=== PATIENT | female | born 1955 | race Caucasian/White ===

== ENCOUNTER 2019-04-17 10:12 | Inpatient (IN) | payer MEDICARE, OTHER, SELFPAY ==
--- NOTE | 2019-04-03 13:25 | HP.PCM_ITS ---
History and Physical History and Physical Patient Name: Clemencia OlmsteadOB: 1955 From: MORENO ANGELO PA-C DATE OF SURGERY: 04/17/2019 SCHEDULED PROCEDURE: revision left total knee arthroplasty HISTORY OF PRESENT ILLNESS: Preoperative history and physical exam was performed on April 03, 2019. This is a 63-year-old female who is been having ongoing pain in her postsurgical left total knee arthroplasty since 2016. Patient had a previous left total knee arthroplasty by Dr. Carbone in 2003. Prior to that she had a previous surgery due to recurrent patellar dislocations. Patient states over the past 2 years her pain has progressively become worse. Patient states her pain is been aching. She has increased pain going up and down stairs and walking. She has difficult time with activities of daily living including shopping. She has fallen secondary to her left knee. Patient does complain of instability with the left knee. Previous lab work in May 2017 was negative for underlying infection. Patient feels unsafe going up and down stairs. Patient has tried rest, heat, elevation with only temporary relief. She has been through formal physical therapy and home exercises with only minimal relief. Patient has been using a cane on occasion. She denies any current chest pain, shortness of breath, fevers chills, recent infections. We are obtaining surgical clearance from her primary care physician Dr. Samuel. 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 After failing conservative measures and discussing treatment options with Dr. Manfred Mak, the patient would like to proceed with a revision left total knee arthroplasty. Patient does report postoperatively after her total knee arthroplasty she had significant tremors that required Valium. She states the neurologist needed to be consult while in the hospital. These tremors were secondary to her epilepsy. REVIEW OF SYSTEMS: ROS: Const: Reports anxiety, but denies anorexia, change in appetite, fever and weight change,hard of hearing, and vision problems. CV: Denies chest pain, heart murmur, irregular heartbeat and peripheral vascular disease. Resp: Denies asthma, cough, pneumonia, sleep apnea, SOB, tuberculosis and wheezing. GI: Denies constipation, diarrhea, heartburn, nausea, bloody stools and vomiting, and difficulty swallowing. : Genital: reports irregular menstrual periods. Urinary: denies incontinence. Musculo: Denies leg swelling, trouble walking and weakness and limp. Skin: Denies Raynaud's, history of shingles and tattoo. Neuro: Denies ambulatory dysfunction, dizziness, numbness/tingling and tremor. Psych: Denies anxiety, depression, insomnia, mental illness and stress. Rodrigo/Lymph: Denies anemia, bleeding/bruising tendency and past transfusion. Reviewed, no changes. PAST MEDICAL HISTORY: Advance Care Plan: No Advance Directives Effective Date: 06/22/2017 PMH: Medical Problems: Arthritis, Seizure Disorder, History Of Phlebitis Accidents: Fracture - Fingers LEFT HAND, RIGHT SIDE RIBS Fracture - (11/19/2009) LEFT FOOT Fracture - (10/2009) RIGHT WRIST Surgical Hx: Gallbladder, Hysterectomy, Tubal Ligation Knee Replacement - LEFT TKR, [address] [facility] Dr. Raf Silva - LEFT FOOT, 1974 [facility] Colonoscopy 2006 Carpal Tunnel Release RT - (02/03/2017) [email or web address] Recurrent Patella Dislocation - (1993) Anesthesia Complications: Tremors Assistive Devices: Glasses, Brace Reviewed and updated. SOCIAL HISTORY: SH: Marital: .Occupation: Homemaker Self Employed.Work Status: Self-Employed.Hand Dominance: Right-handed. Personal Habits: Smoking: Patient has never smoked.Cigarette Use: Never.Alcohol: Denies use.Drug Use: Denies Use.Enjoy Exercising: Daily. Reviewed and updated. VITALS: Ht: 62.5 Wt: 172lb Wt k.019 BMI: 31.0 BP: 118/80 Pulse: 94 Resp: 28 T: 97.7 T: 36.5C ALLERGIES: Sulfa MEDICATIONS: Pantoprazole Sodium 40 mg 1 by mouth every day, Aleve 220 mg prn pain, Phenytoin Sodium Extended 100 mg 1 by mouth four times a day, Acetaminophen PM Extra Strength 500-25 mg as needed, Cephalexin 500 mg PRE-OP EXAM: General appearance:NORMAL Other: Eyes: Conjunctivae and lids: NORMAL Pupils: ERR Ears, Nose, Mouth, and Throat: NORMAL Other: Inspection of lips, teeth and gums: NORMAL Other: Neck: Examination of neck: no masses noted. Respiratory: Assessment of respiratory effort: NORMAL Other: Auscultation of lungs: clear to auscultation no wheezes, rhonchi or rales. Cardiovascular: Auscultation of heart: regular rate and rhythm, no murmurs, gallops or rubs. Gastrointestinal: Exam of abdomen: soft, nontender, nondistended bowel sounds present. PHYSICAL EXAMINATION: Patient does walk with an antalgic gait. Previous left knee incisions are well- healed without erythema or signs of infection. Range of motion left knee: Lacks 3 of full extension to 120 flexion. There is mild excursion with anterior drawer testing. 3 mm excursion with varus and valgus stress testing at 30. Sensation intact to light touch. Neurovascularly intact. IMAGING STUDIES: X-rays of the left knee reveal well aligned knee in the coronal plane. There is central pin signifying condylar constrained implant. On the lateral view there is significant posterior slope which is not necessary in this implant. Otherwise implants are stable. Well fixed. IMPRESSION: 1. Painful left total knee arthroplasty 2. Epilepsy 3. History of superficial venous thrombosis 4. Gastroesophageal reflux disease PLAN: Dr. Manfred Mak did discuss and review with the patient all treatment options including surgical versus nonsurgical options. Patient does wish to proceed with the above-stated procedure. Potential risks, benefits, and complications of the procedure were discussed in detail including but not limited to , infection, nerve and blood vessel damage, persistent pain, numbness, tingling, paresthesias, blood clot, pulmonary embolism, and requirement for possible further surgery. The patient expressed full understanding and has no further questions for the doctor. Patient does agree to proceed with the above-stated procedure and has signed the surgery consent form. This dictation was created using voice recognition software. Phonetic and/or grammatical errors may exist.. ___ I have re-examined the patient. There are no clinical changes since date of exam. ___ See progress notes for changes. ___ Dictated on admission Date: Time: Signature:
[2019-04-03 14:19] VITALS: BP 116/70; PULSE 93; RESP 17; TEMP 37.2; O2SAT 96; BMI 31.4
[2019-04-03 15:32] LABS: Absolute Lymphocyte Count 1.43 X10^3/ul (0.83-4.51); Absolute Neutrophil Count 2.5 X10^3/uL (2.0-7.7); Basophil# 0.01 X10^3/uL; Basophil% 0.2 % (0-1); Eosinophil# 0.33 X10^3/uL; Eosinophils% 6.6 % (0-5); Hemoglobin 14.1 g/dl (12.0-15.0); Lymphocyte # 1.43 X10^3/ul (4.0); Lymphocyte % 28.6 % (19-41); Mean Corp Hgb Conc 32.8 g/gl (32-36); Mean Corpuscular Hgb 31.4 pg (27.0-32.0); Mean Corpuscular Volume 95.8 fL (81-99); Mean Platelet Vol. 9.7 fl (6.2-12.0); Monocyte# 0.75 X10^3/uL; Neutrophil # 2.47 X10^3/uL (2.7-7.7); Neutrophil % 49.4 % (47-70); Platelet Count 269 K/mm3 (150-450); RBC Distribution Width CV 13.1 % (11.6-14.6); Red Blood Count 4.49 M/mm3 (4.2-5.4)
[2019-04-03 15:42] LABS: Prothrombin Time (Protime)PT. 12.6 SECONDS (11.7-14.9)
[2019-04-03 15:43] LABS: Partial Thromboplast Time 27.8 Seconds (24.1-36.2)
[2019-04-03 15:47] LABS: AST(SGOT) 30 U/L (15-37); Alanine Aminotransfer ALT/SGPT 33 U/L (13-56); Albumin, Serum 3.5 g/dL (3.2-5.0); Alkaline Phosphatase 79 U/L (45-117); Anion Gap 3 (5-15); BUN 19 mg/dL (7-18); BUN/Creat Ratio 19.5 RATIO (10-20); Bilirubin, Direct 0.06 mg/dL (0.00-0.30); Calcium,Total 8.6 mg/dL (8.5-10.1); Chloride 108 mmol/L (98-107); Creatinine, Serum 0.97 mg/dL (0.55-1.02); EST Glomerular Filtration Rate 61 mL/min (>60); Est Glom Filt Rate - Afr Amer 74 mL/min (>60); Estimated Creatinine Clearance 45.73 ml/min; Glucose 106 mg/dL (74-106); Potassium 4.1 mmol/L (3.5-5.1); Protein, Total 7.5 g/dL (6.4-8.2); Sodium Level 140 mmol/L (136-145)
[2019-04-03 15:50] LABS: POSITIVE COUNT NO; POSITIVE DIFFERENTIAL NO; POSITIVE MORPHOLOGY NO
[2019-04-17] VITALS (9 sets, daily range): BP systolic 96–117; BP diastolic 56–78; PULSE 84–106; RESP 16–20; TEMP 36.4–36.7; O2SAT 95–100; BMI 31.4; BMI 31.3
[2019-04-17] MEDS: Magnesium Sulfate 4gm/100mL 4 GM/100 ML IV.SOLN. IV (10:52)
[2019-04-17] MEDS: Acetaminophen 500 MG Tablet 1000 MG PO ×2 (10:52→22:32)
[2019-04-17] MEDS: Gabapentin 600 MG Tablet PO (10:53)
[2019-04-17] MEDS: Scopolamine 1mg/72hr Patch 1 PATCH TRANSDERM. (10:53)
[2019-04-17 11:10] LABS: Bedside Glucose 82 mg/dL (70-110)
[2019-04-17] MEDS: Cefazolin 2 GM in 0.9% Normal Saline 100 ML IV (12:34)
--- NOTE | 2019-04-17 15:10 | OP.PCM_ITS ---
Report of Operation Date of Procedure: 04/17/19 Pre-Operative Diagnosis: Painful left total knee, instability Post-Operative Diagnosis: Painful left total knee, instability Surgery/Procedure Performed:: Revision Left total knee replacement entire tibia and femur components Description of Surgical Findings:: Stable knee. Patient did have fragmentation of the medial epicondyle which was repaired using a #5 FiberWire tension band residential monitor: Krishna Perez Type of Anesthesia:: Spinal Anesthesiologist: Byron Bustos Special Medications: 2 g Ancef, 1 g TXA at incision, 1 g TXA closure, 10 mg Decadron, joint cocktail (5 mg Duramorph, 30 mL of 0.5% Ropivicaine, 1000 units of epinephrine, 30 mg of Toradol). Ancef was redosed at completion of case. Vancomycin IV Specimen's removed: 3 separate specimens were sent to microbiology Estimated Blood Loss (mL): 150 Fluids Replaced: 600 ml crystalloid Description of Procedure: On the date of the procedure patient's left knee was marked in the preoperative area. Patient was taken back to the operating room with her transferred to the table in the supine position. Anesthesia assumed control of the C-spine and airway and remained controlled throughout the remainder of the procedure. Spin al anesthetic was administered. All bony prominences were identified and well- padded. After patient was appropriately positioned in the supine position with a bump on the left hip and tourniquet on the left upper thigh left lower extremity was prepped in a sterile fashion by the surgeon scrubbed. Upon entering the room the left lower extremity was draped in a sterile fashion and timeout was called and everyone agreed upon the side, the site, that she is reperformed, patient identity and antibiotics given. Incision was marked out using the previous incision and extending it proximally distally 1 cm. Esmarch bandage was used to examine it extremity. Knee was flexed and tourniquet was placed up to 250 mmHg. Incision was taken through skin subtenons tissue fat down to fascia. Appropriate flaps were made medially and laterally. After this was done a standard medial parapatellar arthrotomy was performed and the knee joint was entered. Once we entered the knee joint and appropriate synovectomy was performed starting in the medial gutter in the suprapatellar pouch and into the lateral gutter extending synovium for culture. Once this was done the central screw was removed and the polyethylene component was then removed using an osteotome. When this was done we finished the medial lateral and posterior synovectomies. Once this was done the knee was flexed up and osteotome was used to break up the bone cement interface of the femur. The femur appeared to be loose. The bone tamp were able to remove it. We did remove it there was some medial condyle bone loss and some ostial lysis noted with poor quality bone. Throughout the procedure we kept her eye on the medial condyle and epicondyle. Our attention was then directed towards the tibia. Oscillating saw and osteot omes were used to break up the bone cement interface and the implant was carefully removed. The remainder of the cement was removed. . Our attention was now directed towards the patella which appeared to be well fixed. Attention was then directed towards reconstruction of the knee at this point. Reamers were placed down the tibial canal until we got to a size 14 reamer. Once this was done we then reamed for a size B tibial cone. Tibial cone was placed using the cone as a guide we made a flat tibial cut perpendicular to the tibial axis which was checked using a drop mikal. Once this was done a size 2 baseplate was selected keel was punched in the size 2 baseplate with a 15 x 50 mm stem placed in the canal. Attention was then directed towards the femur. We reamed the femur canal up to a size 17. We prepared it for 150 mm stem. Once this was done we used a TC G cutting guide to make our distal femoral cuts and posterior cuts. Size 3 femoral component was selected. Once we did this we then elected to ream for right femoral cone. The box cut was made and then we reamed for the femoral cone. We reamed bubbles medially and laterally. Once this was done the trial cone was placed. Distally we used a 15 mm augment laterally and a 10 mm augment medially. After this was done 5 mm augments were used posteriorly both medially and laterally. We assembled the trial femoral co mponent and with the 150 x 17 mm stem trial was placed. We then trialed up to 25 mm polyethylene which gave us a stable knee in both flexion and extension. However take the knee through range of motion we noted some of the fragmentation of the medial epicondyle but remained intact. Once is completed all components were removed the wound was copiously 6 L normal saline. After appropriate irrigating out the wound the bone was prepped and a cement restrictor was placed in the tibial canal. The cone was placed proximally. Once this was done the tibial component was assembled as well as the femoral component. Cement was mixed for the tibia and the tibial canal was pressurized. The tibia was cemented into place due to the patient's poor quality bone was cemented the tibia first and held it in place until it was well fixed. We then directed our attention towards the femur for the diaphyseal portion was press- fit and the cone was placed and impacted. Once this was done cement was placed around the distal portion of the femoral stem and it was impacted into place. Once it was appropriately cured a TS 25 mm polyethylene trial showed well- balanced knee with good patella tracking. Patella was once again reexamined and found to be stable. At this time the final polyethylene was opened and impacted into place. The central pin was placed. Knee was taken through range of motion. We again reexamined the medial epicondyle. Based on the implants appeared to be stable however there was some motion with flexion. At this time we used a #[address] a tension band repair. This remained even further stable with range of motion now. Hemostasis was obtained and tourniquet was let down. Wound was closed using #1 Vicryl for the arthrotomy. 2-0 Vicryl and skin hilario for final skin closure. Sterile dressing was placed. Patient was awakened by anesthesia and transferred to PACU for recovery. Postop plan: Weightbearing as tolerated, motion as tolerated. Aspirin for DVT prophylaxis. Follow-up in the office in 2 weeks. My physician executive sales assistant was a vital part of this case. He was important in appropriate retraction during the case, and protection of soft tissues during bony cuts. His intimate knowledge of the case and my steps aided in safe and expedient completion of the procedure as well as appropriate position of the leg during the case. He was also vital in assisting with closure under my direct supervision. Grafts/Implants Used: [employer] triathlon total knee replacement - Complications During the course the procedure due to patient's osteopenia was some fragmentation of the medial epicondyle which was repaired using a #5 - Admit VTE Documentation VTE Present on Admission: No VTE Mechan Device Prophylaxis: SCD's, Thigh High CHANTALE Hose VTE Pharm Prophylaxis ordered?: Yes
[2019-04-17] MEDS: Scopolamine 1mg/72hr Patch 1 PATCH TD (15:15)
--- NOTE | 2019-04-17 16:00 | RAD_ITS ---
STUDY: X-RAY - LEFT KNEE REASON FOR EXAM: Female, 63 years old. Knee arthroplasty TECHNIQUE: 2 view(s) of the knee. COMPARISON: None. FINDINGS: Normal visualized distal femur. Normal visualized proximal tibia and fibula. Normal proximal tibiofibular articulation. Recent total knee arthroplasty with skin hilario and subcutaneous kidneys emphysema.. The soft tissue structures are unremarkable. RAD/Knee 1 or 2 Views IMPRESSION: Recent total knee arthroplasty. Electronically Signed: Jarrett Barahona MD at 16:14 EDT Tel , Service support ,
[2019-04-17] MEDS: Lactated Ringers 1,000 ML 999 ML IV (16:13)
[2019-04-17] MEDS: Lactated Ringers 1,000 ML 125 ML IV (20:23)
--- NOTE | 2019-04-17 21:34 | PN_ITS ---
Subjective: Medical consult for postop medical management. 63-year-old female with past medical history of seizure disorder, reported history of superficial venous thrombosis usually postoperative, history of left total knee arthroplasty in 2004, history of left knee previous patella fractures for dislocation, who comes in with progressive knee pain since 2017. It is worse on going up and down the staircase and affecting her activities of daily living. Patient had complained of instability of the left knee with episodes of falls. She had tried conservative management including physical therapy, home exercises, topical treatment and use of a cane with no relief. Patient had revision of her left knee arthroplasty done today. It was done under spinal anesthesia. She received left femoral nerve block postoperatively. At the time of being examined, patient feels the pain coming up, about 3 out of 10. She feels lightheaded but denies chest pain or palpitation. She is on IV fluids. 14 point Review of systems was essentially negative. Vitals/I&O's: Vital Signs Temp Pulse Resp BP Pulse Ox 98.0 F 88 16 106/69 98 04/17/19 19:14 04/17/19 19:14 04/17/19 19:14 04/17/19 19:14 04/17/19 19:14 Oxygen Flow Rate (L/min) 6 Oxygen Delivery Method Room Air Weight: 79.2 kg Body Mass Index (BMI) 31.3 Intake and Output for Last 24 Hours 04/15/19 04/16/19 04/17/19 23:59 23:59 23:59 Intake Total 1400 / 1400 Balance 1400 / 1400 General: Alert, Oriented x3, Cooperative, No apparent distress HEENT: Atraumatic, PERRLA, EOMI, Normocephalic Oral: Moist Mucosa Neck: Supple Lungs: Clear to auscultation, Normal air movement Cardiovascular: Regular rate, Regular Rhythm, Normal S1, Normal S2, No murmurs Abdomen: Bowel Sounds Present, Soft, Non Tender, Non-Distended, No Hepato- splenomegaly Extremities: No edema, - - left knee in DICKSON wraps, ice packs to knee, bilateral CHANTALE hoses on legs as well as SCDs Skin: No rashes Musculoskeletal: No Tenderness to Palpation of Joints or Extremities Lymphatic: No Cervical, Supraclavicular, or Inguinal Adenopathy Neurological: Cranial nerves II-XII grossly intact, Neuro grossly intact Psych/Mental Status: Normal Affect, Appropriate Laboratory Results 04/17/19 10:47: POC Glucose 82 Current Medications Acetaminophen (Tylenol) 1,000 mg PO Q8 [facility] Citalopram Hydrobromide (Celexa) 40 mg PO QHS [facility] Famotidine (Pepcid) 20 mg PO DAILY [facility] Lactated Ringer's () 1,000 mls @ 125 mls/hr IV .Q8H [facility] Last Admin: 04/17/19 20:23 Dose: 125 mls/hr Documented by: Cefazolin Sodium () 1 gm in 50 mls @ 150 mls/hr IV Q8H [facility] Stop: 04/18/19 07:19 Insulin Human Lispro (Humalog Kwikpen (Bkc)) 0 unit SC Q4H PRN PRN; Protocol PRN Reason: BG >/= 180, SEE PROTOCOL Ketorolac Tromethamine (Toradol) 15 mg IV Q6H PRN PRN PRN Reason: MILD-MOD PAIN (1-5/10) Meloxicam (Mobic) 7.5 mg PO BID [facility] Morphine Sulfate () 2 - 4 mg IV Q2H PRN PRN PRN Reason: SEVERE PAIN (6-10/10) Morphine Sulfate () 2 - 4 mg IV Q2H PRN PRN PRN Reason: SEVERE PAIN (6-10/10) Ondansetron HCl (Zofran) 4 mg IV Q8H PRN PRN PRN Reason: NAUSEA Oxycodone HCl (Oxyir) 5 - 10 mg PO Q4H PRN PRN PRN Reason: MOD-SEVERE PAIN (4-10/10) Pantoprazole Sodium (Protonix) 40 mg PO DAILY [facility] Phenytoin Sodium (Dilantin) 300 mg PO QHS [facility] Promethazine HCl (Phenergan) 12.5 mg IM Q6H PRN PRN; Protocol PRN Reason: NAUSEA/VOMITING Rivaroxaban (Xarelto) 10 mg PO DAILY@0600 [facility] Senna/Docusate Sodium (Senokot-S, Christi-Colace) 2 tablet PO BID [facility] Sodium Chloride () 10 - 40 ml IV UD PRN PRN Reason: SALINE FLUSH Medical Necessity - Tobacco Use Smoking Status: Never smoker Assessment/Plan 1. POD #0, status post revision of left knee arthroplasty, pain control and surgical recommendations by orthopedic 2. Seizure disorder, on Dilantin, last seizure episode was in 1983, recent Dilantin check a couple of months ago was normal, on stable doses 3. GERD, on PPI 4. Anxiety/depression on Celexa 5. History of postop tremors, susceptible to Valium 6. DVT PPx- on Xarelto Code Visit Inpatient E&M: 16281 Subs Hosp L2
[2019-04-17] MEDS: diazePAM 2 MG Tablet 1 MG PO (22:29)
[2019-04-17] MEDS: Phenytoin Na 100 MG Capsule 300 MG PO (22:30)
[2019-04-17] MEDS: Citalopram 40 MG TABLET PO (22:30)
[2019-04-17] MEDS: Meloxicam 7.5 MG Tablet PO (22:31)
[2019-04-17] MEDS: Senna/Docusate Sodium 1 Tablet 2 TABLET PO (22:32)
[2019-04-17] MEDS: Ketorolac 15 MG/ML Vial IV (22:33)
[2019-04-18 04:00] VITALS: BP 137/74; PULSE 90; RESP 20; TEMP 36.9; O2SAT 98
[2019-04-18] MEDS: Acetaminophen 500 MG Tablet 1000 MG PO ×3 (05:07→22:33)
[2019-04-18] MEDS: oxyCODONE 5 MG Tablet PO ×3 (05:10→19:22)
[2019-04-18 06:02] LABS: Hemoglobin 11.5 g/dl (12.0-15.0); Mean Corp Hgb Conc 32.9 g/gl (32-36); Mean Corpuscular Hgb 31.3 pg (27.0-32.0); Mean Corpuscular Volume 95.4 fL (81-99); Mean Platelet Vol. 9.4 fl (6.2-12.0); Platelet Count 194 K/mm3 (150-450); RBC Distribution Width CV 13.1 % (11.6-14.6); RBC Distribution Width SD 45.9 fl (35.1-43.9); Red Blood Count 3.67 M/mm3 (4.2-5.4); White Blood Count 8.6 K/mm3 (4.4-11.0)
[2019-04-18 06:18] LABS: Anion Gap 5 (5-15); BUN 11 mg/dL (7-18); BUN/Creat Ratio 13.7 RATIO (10-20); Calcium,Total 7.8 mg/dL (8.5-10.1); Chloride 101 mmol/L (98-107); EST Glomerular Filtration Rate 76 mL/min (>60); Est Glom Filt Rate - Afr Amer 92 mL/min (>60); Estimated Creatinine Clearance 55.45 ml/min; Glucose 120 mg/dL (74-106); Potassium 3.9 mmol/L (3.5-5.1); Scan Indicated on CBC? Y/N NO; Sodium Level 134 mmol/L (136-145)
[2019-04-18 07:51] VITALS: BP 131/74; PULSE 83; RESP 16; TEMP 36.9; O2SAT 94
[2019-04-18] MEDS: Rivaroxaban 10 MG Tablet PO (07:59)
[2019-04-18] MEDS: Cefazolin 1 GM/50 ML BAG IV ×2 (07:59)
--- NOTE | 2019-04-18 10:11 | PCM.PN.ORT ---
Subjective: The patient was sitting in bedside chair upon examination. Patient denies any chest pain, shortness of breath, dizziness, lightheadedness, nausea or vomiting, or calf pain. Pain is controlled on medications at rest. Patient's main complaint is pain when she is up walking. Patient is also getting some tremors/spasms in the left lower extremity. No adverse overnight events. Patient after her last total joint replacement she had significant tremors secondary to her epilepsy. This could only be managed with Valium. She did have 1 dose of Valium overnight. Case was discussed with Dr Vanegas and he will order Valium at this time. Patient has been working with physical therapy and there is concerned with patient needing further skilled treatment. Objective: 1. S/P revision left total knee replacement entire tibia and femoral components with fragmentation of the medial epicondyle and repair POD #1 2. Continue Pain Medications: Tylenol and OxyIR 3. DVT Prophylaxis: Currently on Xarelto for 2 weeks postoperatively, followed by additional 2 weeks of 81 mg aspirin twice daily for DVT prophylaxis 4. PT/OT: Weightbearing as tolerated with walker, range of motion as tolerated. 5. H & H: 11.5/35.0, asymptomatic 6. Encouraged Incentive Spirometry 7. Continue postoperative medical management per medicine: Case was discussed with hospitalist and at this time Valium has been ordered for her tremors/spasms secondary to her epilepsy. 8. Disposition: machine operator hop worker is on board with appropriate placement. Patient may need additional assistant department manager with longterm facility. We will continue to monitor. - Physical Exam General: Alert, Oriented x3, Cooperative, No apparent distress Vital Signs Temp Pulse Resp BP Pulse Ox 98.4 F 83 16 131/74 H 94 04/18/19 07:51 04/18/19 07:51 04/18/19 07:51 04/18/19 07:51 04/18/19 07:51 Oxygen Flow Rate (L/min) 6 Oxygen Delivery Method Room Air Weight: 79.2 kg Body Mass Index (BMI) 31.3 Intake and Output for Last 24 Hours 04/16/19 04/17/19 04/18/19 23:59 23:59 23:59 Intake Total 1400 / 3239 2499 / 2499 Output Total 600 / 600 Balance 1400 / 3239 1899 / 1899 Laboratory Tests Past 24 Hrs 04/18/19 04/18/19 05:28 05:28 WBC 8.6 RBC 3.67 L Hgb 11.5 L Hct 35.0 L MCV 95.4 MCH 31.3 MCHC 32.9 RDW 13.1 RDW Differential 45.9 H Plt Count 194 MPV 9.4 Sodium 134 L Potassium 3.9 Chloride 101 Carbon Dioxide 28.0 Anion Gap 5 BUN 11 Creatinine 0.80 Estim Creat Clear Calc 55.45 Est GFR (MDRD) Af Amer 92 Est GFR (MDRD) Non-Af 76 BUN/Creatinine Ratio 13.7 Glucose 120 H Calcium 7.8 L POC Glucose 04/17/19 10:47 POC Glucose 82 Medical Necessity - Tobacco Use Smoking Status: Never smoker
[2019-04-18] MEDS: Pantoprazole Sodium 40 MG Tablet PO (10:26)
[2019-04-18] MEDS: Senna/Docusate Sodium 1 Tablet 2 TABLET PO ×2 (10:26→22:33)
[2019-04-18] MEDS: Famotidine 20 MG Tablet PO (10:26)
[2019-04-18] MEDS: Meloxicam 7.5 MG Tablet PO ×2 (10:26→22:33)
[2019-04-18] MEDS: diazePAM 5 MG Tablet PO ×3 (10:26→22:39)
--- NOTE | 2019-04-18 11:33 | CASEMGMT ---
Addendum entered by Massiel Stoner 04/18/19 14:30: SW spoke w/pt, and daughter in room. Pt reports that therapy went much better this afternoon, and that her nausea is now under control. Pt and both feel that pt will be able to manage at home w/home health care. SW explained will let CM know. SW let CM know that pt feels is able to return home w/[facility], and pt had called [facility], CM will follow up. RUFINO Medrano Original Note: SW met w/pt and pt's in room in regard to discharge plan. Prior to admission, pt was independent at home, using no DME. Pt lives home w/ in one story home with one step to enter. Pt has a cane and walker, though was not using these prior to this hospitalization. Pt had a knee replacement 15 years ago so had equipment from that surgery. Pt has no other DME. Pt's PCP is Irene Samuel and pt uses [facility] in [place]. SW spoke w/pt and about discharge plan. Pt states she was planning to go home w/[facility], and after two weeks go to outpt therapy. SW spoke w/pt about SNF and rehab options as well, as therapy so far is not going well. Pt is not sure what she wants to do. SW explained that SW can check back after therapy this afternoon, pt agreeable to this. SW will follow up w/pt and after therapy this afternoon in regard to discharge plan. RUFINO Medrano
[2019-04-18] MEDS: Ondansetron 4 MG/2 ML Vial IV (12:01)
[2019-04-18] MEDS: 0.9% NaCl Peripheral Flush Adult/Peds IV (12:01)
[2019-04-18] MEDS: Ketorolac 15 MG/ML Vial IV (12:01)
[2019-04-18 14:36] VITALS: BP 130/75; PULSE 86; RESP 16; TEMP 36.9; O2SAT 93
--- NOTE | 2019-04-18 14:43 | CHAPLAIN ---
Type of Pastoral Visit _x__ Initial Visit ___ Follow-up Visit ___ On-call Visit ___ General Patient Visit ___ Spiritual Assessment ___ Family Conference ___ Bereavement ___ Rapid Response ___ Code Blue ___ Other (describe below) Pastoral Care Referral From _x__ Patient ___ Family ___ Nurse ___ Physician ___ Community Relations Specialist ___ Independent Marketing Consultant ___ Other (describe below) Sacrament/Intervention _x__ Active listening ___ Anointing ___ Synagogue ___ Bereavement ___ Communion _x__ Lali exploration ___ _x__ Life review _x__ Prayer ___ Reconciliation ___ Sacrament of Sick _x__ Supportive presence ___ Wedding ___ Other (describe below) Pastoral Comments
--- NOTE | 2019-04-18 15:39 | CASEMGMT ---
MARINO KERN NOTE: Per RASHEED Rankin, pt wishes to discharge home with [facility]. To room to talk with. Introduced self and role of MARINO KERN. Pt confirms she would like to go home with [facility] and wants [facility] therapy in [place]. Pt made aware [facility] uses [facility] therapy and pt agreeable to [facility]. Call placed to [facility] and referral made. Referral packet faxed to [facility] at this time. Confirmation received that fax went through successfully. [facility]: PH: [phone] Silvia MCGEE RN, CM
[2019-04-18 20:35] VITALS: BP 135/67; PULSE 100; RESP 20; TEMP 37.3; O2SAT 94
[2019-04-18] MEDS: Citalopram 40 MG TABLET PO (22:33)
[2019-04-18] MEDS: Phenytoin Na 100 MG Capsule 300 MG PO (22:33)
[2019-04-19 02:30] VITALS: BP 134/74; PULSE 97; RESP 18; TEMP 36.8; O2SAT 94
[2019-04-19] MEDS: oxyCODONE 5 MG Tablet PO ×3 (04:07→14:39)
[2019-04-19] MEDS: diazePAM 5 MG Tablet PO ×2 (05:31→14:39)
[2019-04-19] MEDS: Acetaminophen 500 MG Tablet 1000 MG PO (05:31)
[2019-04-19] MEDS: Rivaroxaban 10 MG Tablet PO (05:31)
--- NOTE | 2019-04-19 07:03 | PCM.PN.ORT ---
Subjective: The patient was sitting in bed upon examination. Patient denies any chest pain, shortness of breath, dizziness, lightheadedness, nausea or vomiting, or calf pain. Pain is controlled on medications. No adverse overnight events. Patient continues to have pain mainly when she is up walking. Patient does require ankle braces due to her neuropathy. Patient is also currently using Valium due to the tremors after surgery secondary to her epilepsy. Physical therapy does recommend additional therapy. Patient was initially planned for home with home health care. However the hospitalist did discuss with her going to the rehab unit postoperatively to help her get back on her feet prior to going home. She states she is struggling when she is up walking and has most of her pain at that time. Objective: Vital signs stable and afebrile. Patient is able to plantarflex and dorsiflex actively. Sensation is intact to light touch to saphenous, sural, superficial and deep peroneal, and tibial distribution. Dressing is clean dry and intact. Negative Homans bilaterally, negative signs and symptoms of DVT. - Physical Exam General: Alert, Oriented x3, Cooperative, No apparent distress Vital Signs Temp Pulse Resp BP Pulse Ox 98.3 F 97 18 134/74 H 94 04/19/19 02:30 04/19/19 02:30 04/19/19 02:30 04/19/19 02:30 04/19/19 02:30 Oxygen Flow Rate (L/min) 6 Oxygen Delivery Method Room Air Weight: 79.2 kg Body Mass Index (BMI) 31.3 Intake and Output for Last 24 Hours 04/17/19 04/18/19 04/19/19 23:59 23:59 23:59 Intake Total 1400 / 3239 2699 / 3099 600 / 600 Output Total 800 / 800 Balance 1400 / 3239 1899 / 2299 600 / 600 Microbiology Past 72 Hours 04/17/19 15:00 Gram Stain - Final Tissue - Leg, Left Wound Culture - Preliminary No growth-Final to follow 04/17/19 15:00 Gram Stain - Final Tissue - Leg, Left Wound Culture - Preliminary No growth-Final to follow 04/17/19 15:00 Gram Stain - Final Tissue - Leg, Left Wound Culture - Preliminary No growth-Final to follow Laboratory Tests Past 24 Hrs 04/19/19 05:57 WBC Pending RBC Pending Hgb Pending Hct Pending MCV Pending MCH Pending MCHC Pending RDW Pending RDW Differential Pending Plt Count Pending Medical Necessity - Tobacco Use Smoking Status: Never smoker Assessment/Plan 1. S/P revision left total knee replacement entire tibia and femoral components with fragmentation of the medial epicondyle and repair POD #2 2. Continue Pain Medications: Tylenol and OxyIR 3. DVT Prophylaxis: Currently on Xarelto for 2 weeks postoperatively, followed by additional 2 weeks of 81 mg aspirin twice daily for DVT prophylaxis 4. PT/OT: Weightbearing as tolerated with walker, range of motion as tolerated. 5. H & H: 11.4/34.8, asymptomatic 6. Encouraged Incentive Spirometry 7. Continue postoperative medical management per medicine: Case was discussed with hospitalist and at this time Valium has been ordered for her tremors/spasms secondary to her epilepsy. Patient will be given 1 week supply of the Valium for her postoperative tremors. After that patient will require contacting her primary care physician for further medications. 8. Disposition: At this time patient will need additional residential facility postoperatively. Patient is currently requiring the Valium for her tremors. I do believe patient would benefit from additional skilled facility. Will discuss case with social media intern/case management for possible discharge to the rehab unit. Prescriptions will be attached to chart. Patient will follow-up per postop instructions.
[2019-04-19 07:09] LABS: Hematocrit 34.8 % (37-47); Hemoglobin 11.4 g/dl (12.0-15.0); Mean Corp Hgb Conc 32.8 g/gl (32-36); Mean Corpuscular Hgb 30.8 pg (27.0-32.0); Mean Corpuscular Volume 94.1 fL (81-99); Mean Platelet Vol. 9.7 fl (6.2-12.0); Platelet Count 192 K/mm3 (150-450); RBC Distribution Width CV 12.9 % (11.6-14.6); White Blood Count 5.9 K/mm3 (4.4-11.0)
[2019-04-19 07:16] LABS: Scan Indicated on CBC? Y/N NO
--- NOTE | 2019-04-19 07:18 | DCINST_ITS ---
Discharge Diet: No Restrictions Discharge Activity: May Not Drive May shower in (days): 1 - Turn dressing away from water Ice area for (Minutes): 20 - every hour while awake. Weight Bearing Status: Weight bearing as tolerated Elevate: Operative Extremity Additional Activity Instructions:: Wear elastic stockings for 2 weeks after your surgery. Call your doctor if your incision/area has: Continuous Slow Oozing, Sudden Increased Bleeding, Increased Pain/ Swelling, Increased Redness, Foul Smelling Discharge Call your doctor if you observe: Fever of 101 or Higher, Coldness, Increased Pain, Numbness or Tingling, Change in Color, Calf discomfort, Uncontrolled pain Remove Dressing in (days):: 3 - Okay to remove dressing on April 22, 2019 Additional Instructions: DVT prophylaxis: Patient will use Xarelto once daily for 2 weeks postoperatively. After 2-week follow-up visit at [facility] we will switch her however to 81 mg aspirin twice daily with food for an additional 2 weeks Valium: This is currently being used for her postoperative tremors. We will provide 1 week supply postoperatively. After that patient will require to contact her primary care physician for further medication. Allergies/Adverse Reactions: Allergies Sulfa (Sulfonamide Antibiotics) Allergy (Verified 04/17/19 10:24) Rash PAPER TAPE Allergy (Uncoded 04/17/19 10:24) Rash Medications to take at Discharge Citalopram [Celexa] 40 mg PO QHS 04/03/19 Pantoprazole Sodium [Protonix] 40 mg PO DAILY 04/03/19 Phenytoin Sodium Extended [Dilantin] 300 mg PO QHS 04/03/19 Acetaminophen [Tylenol] 1,000 mg PO Q8 #100 tab 04/19/19 Diazepam [Valium] 5 mg PO TID PRN #21 tab 04/19/19 Meloxicam [Mobic] 7.5 mg PO BID #60 tab 04/19/19 Oxycodone [Oxyir] 5 - 10 mg PO Q4H PRN PRN 5 Days #60 tab 04/19/19 Rivaroxaban [Xarelto] 10 mg PO DAILY@0600 #14 tab 04/19/19 Senna/Docusate Sodium [Senokot-S] 2 tab PO BID #20 tab 04/19/19 The following prescriptions were given: Meloxicam [Mobic] 7.5 mg PO BID #60 tab Prescription Printed Oxycodone [Oxyir] 5 - 10 mg PO Q4H PRN PRN 5 Days #60 tab PRN Reason: Mod-Severe Pain (-07/18) Prescription Printed Senna/Docusate Sodium [Senokot-S] 2 tab PO BID #20 tab Prescription Printed Acetaminophen [Tylenol] 1,000 mg PO Q8 #100 tab Prescription Printed Diazepam [Valium] 5 mg PO TID PRN #21 tab PRN Reason: tremors Prescription Printed Rivaroxaban [Xarelto] 10 mg PO DAILY@0600 #14 tab Prescription Printed Primary Care Physician: Irene Samuel MD [Primary Care Provider] - Test Results: Test results from this visit will be discussed in further detail at your follow- up appointment, if applicable. Please Follow Up With: Krishna Perez PA-C When: 05/01/19 @ 10:00
[2019-04-19 08:30] VITALS: BP 103/68; PULSE 92; RESP 18; TEMP 37.1; O2SAT 93
[2019-04-19] MEDS: Senna/Docusate Sodium 1 Tablet 2 TABLET PO (09:09)
[2019-04-19] MEDS: Pantoprazole Sodium 40 MG Tablet PO (09:09)
[2019-04-19] MEDS: Meloxicam 7.5 MG Tablet PO (09:09)
[2019-04-19] MEDS: Famotidine 20 MG Tablet PO (09:09)
--- NOTE | 2019-04-19 09:16 | CASEMGMT ---
MARINO KERN NOTE: Discharge plan is now for pt to go to @ discharge. Call placed to [facility]. Message left stating that referral is cancelled. Silvia MCGEE RN CM
--- NOTE | 2019-04-19 09:17 | CASEMGMT ---
Social Work Note RASHEED spoke with Yohannes CISNEROS. Per Yohannes he was updated by the pt that pt wishes to discharge to instead of going home. Yohanens states pt is ready for discharge today. RASHEED informed Ray that pt will need to be discharged and over to by 3:00pm today for [facility] to take pt today and doesn't accept admissions on the weekend now. Yohannes states understanding. RASHEED placed a call to Destini with [facility]. Destini confirms that she is able to accept pt today. RASHEED met with pt, introduced self and role at [facility]. Pt is alert and orientated x4. Pt confirms that she wishes to discharge to . RASHEED updated pt that [facility] is able to accept pt and pt will be discharged today. Pt states understanding. RN updated. RASHEED placed a call to AMELIA Sheffield and updated him that pt is agreeable to [facility]. Yohannes states he will put discharge in. Plan: [facility] today Gisel Matta MANUFACTURING CONTROLS ENGINEER, MANUFACTURING ENGINEERING PROFESSOR
--- NOTE | 2019-04-19 11:21 | PCM.HP.STD ---
History of Present Illness Date of Admission: 04/19/19 Chief Complaint: LEFT KNEE PAIN The patient is a 63 year old F admitted to the rehab unit status post repeat total left knee replacement surgery performed 04/09/[address] Mak, her postoperative course has been on eventful. She has had some constipation and pain. She lives at home with her in a one-story house with 8 steps that she needs to negotiate in order to return home. She is otherwise functionally independent. She does have a history of seizures remotely but has not had seizures in at least 30 years and continues to take the same dose of Dilantin which is well-tolerated. She used to see a neurologist in [place] but he has retired. She believes when she has a surgery she has seizures involving her left leg which she describes pain and tremors which improved with Valium and her left lower extremity. No other evidence of seizures. She is now admitted to the rehab unit with a goal of restoring her previous level of functional independence. per admit note:Preoperative history and physical exam was performed on April 03, 2019. This is a 63-year-old female who is been having ongoing pain in her postsurgical left total knee arthroplasty since 2016. Patient had a previous left total knee arthroplasty by Dr. Carbone in 2003. Prior to that she had a previous surgery due to recurrent patellar dislocations. Patient states over the past 2 years her pain has progressively become worse. Patient states her pain is been aching. She has increased pain going up and down stairs and walking. She has difficult time with activities of daily living including shopping. She has fallen secondary to her left knee. Patient does complain of instability with the left knee. Previous lab work in May 2017 was negative for underlying infection. Patient feels unsafe going up and down stairs. Patient has tried rest, heat, elevation with only temporary relief. She has been through formal physical therapy and home exercises with only minimal relief. Patient has been using a cane on occasion. She denies any current chest pain, shortness of breath, fevers chills, recent infections. We are obtaining surgical clearance from her primary care physician Dr. Samuel. 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 After failing conservative measures and discussing treatment options with Dr. Manfred Mak, the patient would like to proceed with a revision left total knee arthroplasty. Patient does report postoperatively after her total knee arthroplasty she had significant tremors that required Valium. She states the neurologist needed to be consult while in the hospital. These tremors were secondary to her epilepsy. Past Medical History Allergies Sulfa (Sulfonamide Antibiotics) Allergy (Verified 04/17/19 10:24) Rash PAPER TAPE Allergy (Uncoded 04/17/19 10:24) Rash Home Medications: Ambulatory Orders Medication Instructions Recorded Citalopram [Celexa] 40 mg PO QHS 04/03/19 Pantoprazole Sodium [Protonix] 40 mg PO DAILY 04/03/19 Phenytoin Sodium Extended 300 mg PO QHS 04/03/19 [Dilantin] Acetaminophen [Tylenol] 1,000 mg PO Q8 #100 tab 04/19/19 Diazepam [Valium] 5 mg PO TID PRN #21 tab 04/19/19 Meloxicam [Mobic] 7.5 mg PO BID #60 tab 04/19/19 Oxycodone [Oxyir] 5 - 10 mg PO Q4H PRN PRN 5 Days 04/19/19 #60 tab Rivaroxaban [Xarelto] 10 mg PO DAILY@0600 #14 tab 04/19/19 Senna/Docusate Sodium [Senokot-S] 2 tab PO BID #20 tab 04/19/19 Smoking Status: Never smoker - *Family History Maternal History Items: No pertinent history Review of Systems Constitutional: Denies: Chills, Fever, Weight Change HEENT: Denies: Head Aches, Sinus Congestion, Sinus Drainage Cardiovascular: Denies: Chest Pain, Palpitations Respiratory: Denies: Cough, Shortness of breath at rest, Sputum production Gastrointestinal: Denies: Abdominal Pain, Nausea, Vomiting Genitourinary: Denies: Dysuria Musculoskeletal: Denies: Joint Pain, Joint Tenderness Skin: Denies: Rash, Wounds Neurological: Denies: Numbness, Tingling, Focal weakness Psychiatric: Denies: Anxiety, Depression, Homicidal Ideations, Suicidal Ideations Hematologic/ Lymphatic: Denies: Easy Bruising, Easy Bleeding VTE Information - Inpt Only VTE Present on Admission: Yes VTE Mechan Device Prophylaxis: SCD's - Physical Exam General: Alert, Oriented x3, Cooperative, No apparent distress HEENT: Atraumatic, PERRLA, EOMI Neurological: Cranial nerves II-XII grossly intact Psych/Mental Status: Normal Affect Vital Signs Temp Pulse Resp BP Pulse Ox 37.1 C 92 18 103/68 93 04/19/19 08:30 04/19/19 08:30 04/19/19 08:30 04/19/19 08:30 04/19/19 08:30 Oxygen Flow Rate (L/min) 6 Oxygen Delivery Method Room Air Weight: 79.2 kg Body Mass Index (BMI) 31.3 Intake and Output for Last 24 Hours 04/17/19 04/18/19 04/19/19 23:59 23:59 23:59 Intake Total 1400 / 3239 2699 / 3099 600 / 600 Output Total 800 / 800 Balance 1400 / 3239 1899 / 2299 600 / 600 Microbiology Past 72 Hours 04/17/19 15:00 Gram Stain - Final Tissue - Leg, Left Wound Culture - Preliminary No growth-Final to follow 04/17/19 15:00 Gram Stain - Final Tissue - Leg, Left Wound Culture - Preliminary No growth-Final to follow 04/17/19 15:00 Gram Stain - Final Tissue - Leg, Left Wound Culture - Preliminary No growth-Final to follow Laboratory Tests Past 24 Hrs 04/19/19 05:57 WBC 5.9 RBC 3.70 L Hgb 11.4 L Hct 34.8 L MCV 94.1 MCH 30.8 MCHC 32.8 RDW 12.9 RDW Differential 43.0 Plt Count 192 MPV 9.7 Current Home Med List Medication Instructions Recorded Confirmed Type Citalopram [Celexa] 40 mg PO QHS 04/03/19 04/17/19 History Pantoprazole Sodium [Protonix] 40 mg PO DAILY 04/03/19 04/17/19 History Phenytoin Sodium Extended 300 mg PO QHS 04/03/19 04/17/19 History [Dilantin] Acetaminophen [Tylenol] 1,000 mg PO Q8 #100 tab 04/19/19 Rx Diazepam [Valium] 5 mg PO TID PRN #21 tab 04/19/19 Rx Meloxicam [Mobic] 7.5 mg PO BID #60 tab 04/19/19 Rx Oxycodone [Oxyir] 5 - 10 mg PO Q4H PRN PRN 5 Days 04/19/19 Rx #60 tab Rivaroxaban [Xarelto] 10 mg PO DAILY@0600 #14 tab 04/19/19 Rx Senna/Docusate Sodium [Senokot-S] 2 tab PO BID #20 tab 04/19/19 Rx Current Medications Generic Name Dose Route Start Last Admin Trade Name Freq PRN Reason Stop Dose Admin Acetaminophen 1,000 mg 04/17/19 22:00 04/19/19 05:31 Tylenol PO 1,000 mg Q8 ALANA Administration Citalopram Hydrobromide 40 mg 04/17/19 22:00 04/18/19 22:33 Celexa PO 40 mg QHS ALANA Administration Diazepam 5 mg 04/18/19 09:35 04/19/19 05:31 Valium PO 5 mg TID ALANA Administration Famotidine 20 mg 04/18/19 10:00 04/19/19 09:09 Pepcid PO 20 mg DAILY ALANA Administration Ketorolac Tromethamine 15 mg 04/17/19 20:50 04/18/19 12:01 Toradol IV 15 mg Q6H PRN PRN Administration MILD-MOD PAIN (1-5/10) Meloxicam 7.5 mg 04/17/19 22:00 04/19/19 09:09 Mobic PO 7.5 mg BID ALANA Administration Morphine Sulfate 2 - 4 mg 04/17/19 15:08 IV Q2H PRN PRN SEVERE PAIN (6-10/10) Morphine Sulfate 2 - 4 mg 04/17/19 15:13 IV Q2H PRN PRN SEVERE PAIN (6-10/10) Ondansetron HCl 4 mg 04/17/19 15:08 04/18/19 12:01 Zofran IV 4 mg Q8H PRN PRN Administration NAUSEA Oxycodone HCl 5 - 10 mg 04/17/19 15:08 04/19/19 09:08 Oxyir PO 5 mg Q4H PRN PRN Administration MOD-SEVERE PAIN (4-10/10) Pantoprazole Sodium 40 mg 04/18/19 10:00 04/19/19 09:09 Protonix PO 40 mg DAILY ALANA Administration Phenytoin Sodium 300 mg 04/17/19 22:00 04/18/19 22:33 Dilantin PO 300 mg QHS ALANA Administration Promethazine HCl 12.5 mg 04/17/19 15:08 Phenergan IM Q6H PRN PRN NAUSEA/VOMITING Protocol Rivaroxaban 10 mg 04/18/19 06:00 04/19/19 05:31 Xarelto PO 10 mg DAILY@0600 ALANA Administration Senna/Docusate Sodium 2 tablet 04/17/19 22:00 04/19/19 09:09 Senokot-S, Christi-Colace PO 2 tablet BID ALANA Administration Sodium Chloride 10 - 40 ml 04/17/19 16:25 04/18/19 12:01 IV 10 ml UD PRN Administration SALINE FLUSH Assessment/Plan debility s/p left tkr pt ot prn analgesics dvt prophylaxis bowel protocol (has been constipated) history of sz, unclear history no seizures in 30 yrs on dilantin continue dilantin
--- NOTE | 2019-04-19 11:29 | REHABEVAL_ITS ---
Admission Information Status Changes from Prescreening?: No changes Identified Actual Problem List:: Pain, ALteration in Cmfrt, Bowel, Constipation, Alteration in Nutrition, Mobility Impaired, Self Care Deficit, BP, Hypertension, Ineffect.D/C Plan r/t Psy Potential Problem List:: DVT, Bleeding, Infection, UTI, Aspiration, Falls, Skin Integrity, Depression Risk of Complications DVT: LMWH, CHANTALE Hose, Sequential Compression Device Bleeding: Monitor Lab Values, Nursing to Teach Precautions for anti-coagulation therapy., Wound, if applicable, to be assessed every shift., Stroke patients assessed for lethargy or change in status. Infection: Clinical Staff to Monitor for S/S of infection:, S/S of infection include fever, redness, warmth, etc. Urinary Tract Infection: Monitor for frequency, burning, discomfort, or incontinence., Nursing will obtain urine sample for urinalysis and C&S when ordered. Aspiration: Clinical staff will monitor for coughing, drooling, congestion., Speech will evaluate swallowing and dsyphasia., Nursing will monitor patient swallowing during meals. Falls: Patient will be evaluated for Fall Precautions, Patient will be placed on Fall Precautions as indicated per protocol. Skin Breakdown: Nursing will assess skin daily using assessment tool., Nursing will place on Skin Breakdown Precautions as indicated. Pain: Clinical staff will assess patient's pain level per protocol., Medications will be given, if needed, and the pain level reassessed., Other methods: Massage, distraction, decrease stimulus, etc. used PRN. Plan of Care Patient requires physician specializing in physical medicine and rehab oversight to provide close medical supervision of rehab issues including: Pain Management, Sleep Problems, Bowel and Bladder, Medical and co-morbidity Management, DVT prophylaxis, Rehabilitation Leadership, Coordination of treatment team Patient needs Physical Therapy: For a minimum of 1 hour, At least 5 out of 7 days Patient needs Physical Therapy to improve:: Mobility, Mobility, Mobility, Strengthening, Transfers, Stretching, ROM, Endurance, Stairs, Gait, Balance Patient needs Occupational Therapy: For a minimum of 1 hour, At least 5 out of 7 days Patient needs Occupational Therapy to improve ADL's incl.: Eating, Grooming, Bathing, Dressing, Toileting, Toilet transfers, Community Reintegration, Higher functioning activities, Household tasks, Adaptive Equipment, Splinting, Other activities as determined Patient requires 24/ Rehabilitation Nursing for: Pain Issues, Identifying and preventing risk factors, Monitoring and reporting current medical conditions, Assisting with ambulation, transfer, and all ADL's, Teaching patients about disease process and medications, Family teaching, Providing safe environment, Bowel and Bladder Issues, Skin integrity, Medication Management Patient needs Tender Labor/ Case Management for: Discharge Planning, Arranging Home Equipment or Services, Family Interventions Patient needs Dietary and Nutrition Services for: Adequate Nutrition, Nutritional Supplements, Nutritional Education Goals Patient will remain: free from falls, or injury at time of discharge. Patient will perform bed mobility at: MOD I level of assist. Patient will complete transfers from bed to chair at: MOD I level of assist. Patient will ambulate: 100 feet, with MOD I assist, with LRD Patient will complete upper body dressing at: MOD I level of assist. Patient will complete lower body dressing at: MOD I level of assist. Patient will complete toileting at: MOD I level of assist. Patient will perform bathing at: MOD I level of assist. Patient will complete grooming at: MOD I level of assist. Patient will complete home management skills at: MOD I level of assist. Patient will achieve: 12 stairs, at MOD I assist Patient will have pain level of: of 3 or less Patient's skin will: remain intact, free from infection. Patient will receive: adequate nutrition. Discharge Planning Pt Prognosis for Sig. Practical Improv. w/in Reasonable Time: Good Anticipated D/C Destination: Home with Outpt Therapy Was Preadmission Assessment Accurate?: Yes
--- NOTE | 2019-04-19 12:12 | NURSING ---
report called to wyatt in [facility]
[2019-04-19 14:40] VITALS: BP 137/85; PULSE 99; RESP 18; TEMP 37.6; O2SAT 96
--- NOTE | 2019-04-19 19:33 | PCM.PROGNOTE ---
Subjective: The date of this progress note is 04/18/2019: Patient was seen in the examined today, her and daughter are in the room at the time of my examination. Patient did not do well in physical therapy today and had a lot of discomfort when she tried to ambulate. Patient states she is doing better this afternoon. I talked at length with the patient about going to a rehab facility-I recommended [facility] rehab unit, after much discussion, patient has agreed to go there for inpatient rehab. Patient has no complaints at this time shortness of breath or chest discomfort. - Physical Exam General: Alert, Oriented x3, Cooperative, No apparent distress, Well developed HEENT: Atraumatic, PERRLA, EOMI, Normocephalic Oral: Moist Mucosa Neck: Supple, No JVD, Trachea Midline, Thyroid Normal Size and Texture Lungs: Clear to auscultation, Normal air movement, No rhonchi, No wheeze, No rales Cardiovascular: Regular rate, Regular Rhythm, Normal S1, Normal S2, No murmurs, No Ectopic Activity Abdomen: Bowel Sounds Present, Soft, Non Tender, Non-Distended, No hernias noted Extremities: No clubbing, No cyanosis, Capillary Refill Less than 3 Seconds Skin: No rashes, No breakdown Musculoskeletal: No Tenderness to Palpation of Joints or Extremities Neurological: Cranial nerves II-XII grossly intact, Neuro grossly intact, Sensory exam intact to light touch and pain Psych/Mental Status: Normal Affect, Appropriate, Alert and oriented to time, place, person, mood and affect Vital Signs Temp Pulse Resp BP Pulse Ox 99.7 F H 99 18 137/85 H 96 04/19/19 14:40 04/19/19 14:40 04/19/19 14:40 04/19/19 14:40 04/19/19 14:40 Oxygen Flow Rate (L/min) 6 Oxygen Delivery Method Room Air Weight: 79.2 kg Body Mass Index (BMI) 31.3 Intake and Output for Last 24 Hours 04/17/19 04/18/19 04/19/19 23:59 23:59 23:59 Intake Total 1400 / 3239 2699 / 3099 600 / 600 Output Total 800 / 800 Balance 1400 / 3239 1899 / 2299 600 / 600 Microbiology Past 72 Hours 04/17/19 15:00 Gram Stain - Final Tissue - Leg, Left Wound Culture - Preliminary No growth-Final to follow 04/17/19 15:00 Gram Stain - Final Tissue - Leg, Left Wound Culture - Preliminary No growth-Final to follow 04/17/19 15:00 Gram Stain - Final Tissue - Leg, Left Wound Culture - Preliminary No growth-Final to follow Laboratory Tests Past 24 Hrs 04/19/19 05:57 WBC 5.9 RBC 3.70 L Hgb 11.4 L Hct 34.8 L MCV 94.1 MCH 30.8 MCHC 32.8 RDW 12.9 RDW Differential 43.0 Plt Count 192 MPV 9.7 Medical Necessity - Tobacco Use Smoking Status: Never smoker Assessment/Plan #1 seizure disorder-currently on Dilantin, stable #2 anxiety/depression-patient remains on Celexa #3 osteoarthritis #4 postop day #1 status post revision of left knee arthroplasty-again patient is agreed to go to the rehab unit at [facility] if there is a bed available. Case management and social work administrator will check tomorrow Code Visit Inpatient E&M: 66314 Subs Hosp L2
--- NOTE | 2019-04-19 19:37 | PN_ITS ---
Subjective: Patient was seen and examined today, was in the room, she has been accepted at the rehab unit [facility] and will be transferred over there today. Patient has no complaints of any shortness of breath or chest discomfort. - Physical Exam General: Alert, Oriented x3, Cooperative, No apparent distress, Well developed HEENT: Atraumatic, PERRLA, EOMI, Normocephalic Oral: Moist Mucosa Neck: Supple, Trachea Midline, Thyroid Normal Size and Texture Lungs: Clear to auscultation, Normal air movement, No rhonchi, No wheeze, No rales Cardiovascular: Regular rate, Regular Rhythm, Normal S1, Normal S2, No murmurs, No Ectopic Activity, PMI Normal Abdomen: Bowel Sounds Present, Soft, Non Tender, Non-Distended Extremities: No clubbing, No cyanosis, Capillary Refill Less than 3 Seconds Skin: No rashes, No breakdown Musculoskeletal: No Tenderness to Palpation of Joints or Extremities Neurological: Cranial nerves II-XII grossly intact, Neuro grossly intact, Sensory exam intact to light touch and pain Psych/Mental Status: Normal Affect, Appropriate, Alert and oriented to time, place, person, mood and affect Vital Signs Temp Pulse Resp BP Pulse Ox 99.7 F H 99 18 137/85 H 96 04/19/19 14:40 04/19/19 14:40 04/19/19 14:40 04/19/19 14:40 04/19/19 14:40 Oxygen Flow Rate (L/min) 6 Oxygen Delivery Method Room Air Weight: 79.2 kg Body Mass Index (BMI) 31.3 Intake and Output for Last 24 Hours 04/17/19 04/18/19 04/19/19 23:59 23:59 23:59 Intake Total 1400 / 3239 2699 / 3099 600 / 600 Output Total 800 / 800 Balance 1400 / 3239 1899 / 2299 600 / 600 Microbiology Past 72 Hours 04/17/19 15:00 Gram Stain - Final Tissue - Leg, Left Wound Culture - Preliminary No growth-Final to follow 04/17/19 15:00 Gram Stain - Final Tissue - Leg, Left Wound Culture - Preliminary No growth-Final to follow 04/17/19 15:00 Gram Stain - Final Tissue - Leg, Left Wound Culture - Preliminary No growth-Final to follow Laboratory Tests Past 24 Hrs 04/19/19 05:57 WBC 5.9 RBC 3.70 L Hgb 11.4 L Hct 34.8 L MCV 94.1 MCH 30.8 MCHC 32.8 RDW 12.9 RDW Differential 43.0 Plt Count 192 MPV 9.7 Medical Necessity - Tobacco Use Smoking Status: Never smoker Assessment/Plan #1 seizure disorder-currently on Dilantin, stable #2 anxiety/depression-patient remains on Celexa #3 osteoarthritis #4 postop day #2 status post revision of left knee arthroplasty-again patient is agreed to go to the rehab unit at [facility] Code Visit Inpatient E&M: 91628 Subs Hosp L2
== END 2019-04-19 14:58 | DRG 468 ==
LOC: ACINP 10:13 → MS3 15:34
PROVIDERS: Anesthesiology; Admitting Provider Specialist; Referring Provider Specialist; Visit Provider Internal Medicine
PROC: 0SPD0JZ Removal of Synthetic Substitute from Left Knee Joint, Open Approach (ICD-10-PCS; principal; 2019-04-17 12:05)
DX: T84.023A Instability of internal left knee prosthesis, initial encounter (principal); K21.9 Gastro-esophageal reflux disease without esophagitis; G40.909 Epilepsy, unspecified, not intractable, without status epilepticus; M85.80 Other specified disorders of bone density and structure, unspecified site; M96.662 Fracture of femur following insertion of orthopedic implant, joint prosthesis, or bone plate, left leg; Z96.652 Presence of left artificial knee joint; T84.84XA Pain due to internal orthopedic prosthetic devices, implants and grafts, initial encounter; Y83.1 Surgical operation with implant of artificial internal device as the cause of abnormal reaction of the patient, or of later complication, without mention of misadventure at the time of the procedure; Z86.718 Personal history of other venous thrombosis and embolism
CPT/HCPCS: 36415; 73560; 80048; 80076; 82962; 85025; 85027; 85610; 85730; 87015; 87070; 87075; 87077; 87081; 87102; 87116; 87205; 87206; 93005; 97110; 97116; 97162; 97166; 97530; 97535; 99251; C1776; J7050; J7120; A4216; G0463; J2405; J3490

== ENCOUNTER 2019-04-19 15:12 | Inpatient (IN) | payer MEDICARE, OTHER, SELFPAY ==
[2019-04-17 17:36] VITALS: BMI 31.3
[2019-04-19 15:38] VITALS: BP 144/80; PULSE 98; RESP 18; TEMP 37.2; O2SAT 94; BMI 31.9; BMI 79.2
[2019-04-19] MEDS: diazePAM 5 MG Tablet PO (17:30)
--- NOTE | 2019-04-19 17:55 | NURSING ---
Aware she is a fall risk and must ask for staff assistance and call galo use demonstrated.
[2019-04-19 19:45] VITALS: BP 117/78; PULSE 100; RESP 16; TEMP 37.3; O2SAT 93
[2019-04-19] MEDS: oxyCODONE 5 MG Tablet PO (19:53)
[2019-04-19] MEDS: Meloxicam 7.5 MG Tablet PO (19:54)
[2019-04-19] MEDS: Senna/Docusate Sodium 1 Tablet 2 TABLET PO (19:54)
[2019-04-19] MEDS: Phenytoin Na 100 MG Capsule 300 MG PO (19:55)
[2019-04-19] MEDS: Citalopram 40 MG TABLET PO (19:55)
[2019-04-19] MEDS: Acetaminophen 500 MG Tablet 1000 MG PO (19:55)
[2019-04-19 21:00] VITALS: PULSE 90; TEMP 37.5
[2019-04-19 22:00] VITALS: PULSE 100
[2019-04-20] MEDS: oxyCODONE 5 MG Tablet PO ×4 (04:35→21:00)
[2019-04-20] MEDS: Rivaroxaban 10 MG Tablet PO (05:48)
[2019-04-20] MEDS: Acetaminophen 500 MG Tablet 1000 MG PO ×3 (05:49→21:01)
[2019-04-20 05:50] VITALS: O2SAT 93
[2019-04-20 08:13] VITALS: BP 130/84; PULSE 98; RESP 18; TEMP 37.1; O2SAT 93
[2019-04-20 08:15] LABS: Absolute Lymphocyte Count 1.08 X10^3/ul (0.83-4.51); Absolute Neutrophil Count 4.2 X10^3/uL (2.0-7.7); Basophil# 0.01 X10^3/uL; Basophil% 0.2 % (0-1); Eosinophil# 0.41 X10^3/uL; Eosinophils% 6.3 % (0-5); Hematocrit 37.1 % (37-47); Hemoglobin 11.9 g/dl (12.0-15.0); Lymphocyte # 1.08 X10^3/ul (4.0); Lymphocyte % 16.5 % (19-41); Mean Corp Hgb Conc 32.1 g/gl (32-36); Mean Corpuscular Hgb 30.8 pg (27.0-32.0); Mean Corpuscular Volume 96.1 fL (81-99); Mean Platelet Vol. 9.6 fl (6.2-12.0); Monocyte# 0.89 X10^3/uL; Monocyte% 13.6 % (0-10); Neutrophil # 4.15 X10^3/uL (2.7-7.7); Neutrophil % 63.2 % (47-70); Platelet Count 223 K/mm3 (150-450); RBC Distribution Width CV 12.8 % (11.6-14.6); RBC Distribution Width SD 43.8 fl (35.1-43.9); Red Blood Count 3.86 M/mm3 (4.2-5.4); White Blood Count 6.6 K/mm3 (4.4-11.0)
[2019-04-20 08:16] LABS: POSITIVE COUNT NO; POSITIVE DIFFERENTIAL NO; POSITIVE MORPHOLOGY NO
[2019-04-20 08:28] LABS: ALB/GLOB Ratio 0.8 RATIO (0.9-2.4); AST(SGOT) 103 U/L (15-37); Alanine Aminotransfer ALT/SGPT 132 U/L (13-56); Alkaline Phosphatase 107 U/L (45-117); Anion Gap 3 (5-15); BUN 9 mg/dL (7-18); BUN/Creat Ratio 9.9 RATIO (10-20); Calcium,Total 8.4 mg/dL (8.5-10.1); Chloride 101 mmol/L (98-107); EST Glomerular Filtration Rate 66 mL/min (>60); Est Glom Filt Rate - Afr Amer 80 mL/min (>60); Estimated Creatinine Clearance 49.29 ml/min; Globulin 3.9 g/dL (2.2-4.2); Glucose 140 mg/dL (74-106); Potassium 3.8 mmol/L (3.5-5.1); Protein, Total 6.9 g/dL (6.4-8.2); Sodium Level 134 mmol/L (136-145)
[2019-04-20] MEDS: Pantoprazole Sodium 40 MG Tablet PO (09:55)
[2019-04-20] MEDS: Meloxicam 7.5 MG Tablet PO ×2 (09:55→21:01)
[2019-04-20] MEDS: diazePAM 5 MG Tablet PO (10:16)
[2019-04-20 20:33] VITALS: BP 116/67; PULSE 97; RESP 18; TEMP 36.7; O2SAT 97
[2019-04-20] MEDS: Senna/Docusate Sodium 1 Tablet 2 TABLET PO (20:59)
[2019-04-20] MEDS: Phenytoin Na 100 MG Capsule 300 MG PO (21:01)
[2019-04-20] MEDS: Citalopram 40 MG TABLET PO (21:01)
[2019-04-21] MEDS: oxyCODONE 5 MG Tablet PO ×3 (02:48→20:00)
[2019-04-21] MEDS: diazePAM 5 MG Tablet PO ×2 (03:40→20:03)
[2019-04-21] MEDS: Acetaminophen 500 MG Tablet 1000 MG PO ×3 (06:57→21:22)
[2019-04-21] MEDS: Rivaroxaban 10 MG Tablet PO (06:58)
[2019-04-21 09:30] VITALS: BP 110/70; PULSE 97; RESP 16; TEMP 36.8; O2SAT 93
[2019-04-21] MEDS: Senna/Docusate Sodium 1 Tablet 2 TABLET PO ×2 (11:02→20:06)
[2019-04-21] MEDS: Pantoprazole Sodium 40 MG Tablet PO (11:02)
[2019-04-21] MEDS: Meloxicam 7.5 MG Tablet PO ×2 (11:02→20:08)
[2019-04-21 11:19] VITALS: O2SAT 93
--- NOTE | 2019-04-21 14:48 | PN_ITS ---
Subjective: Patient was seen and examined in the rehab unit at [facility]. Patient underwent a total knee revision on 04/17/2019 and is at the rehab unit for inpatient rehab services. Patient's medical problems include seizure disorder, anxiety and depression, and osteoarthritis. Patient has no complaints of this examiner today, she has no complaints of any chest pain, shortness of breath, fevers, or chills. - Physical Exam General: Alert, Oriented x3, Cooperative, No apparent distress, Well developed, Well nourished HEENT: Atraumatic, PERRLA, EOMI, Normocephalic Oral: Moist Mucosa Neck: Supple, No JVD, Negative Carotid Bruits, Trachea Midline, Thyroid Normal Size and Texture Lungs: Clear to auscultation, Normal air movement, No rhonchi, No wheeze, No rales Cardiovascular: Regular rate, Regular Rhythm, Normal S1, Normal S2, No murmurs Abdomen: Bowel Sounds Present, Soft, Non Tender, Non-Distended, No hernias noted Extremities: No clubbing, No cyanosis, Capillary Refill Less than 3 Seconds, Edema - Generalized lower leg edema is noted bilaterally Neurological: Cranial nerves II-XII grossly intact, Neuro grossly intact, Sensory exam intact to light touch and pain Psych/Mental Status: Normal Affect, Appropriate, Alert and oriented to time, place, person, mood and affect Vital Signs Temp Pulse Resp BP Pulse Ox 98.3 F 97 16 110/70 93 04/21/19 09:30 04/21/19 09:30 04/21/19 09:30 04/21/19 09:30 04/21/19 11:19 Oxygen Delivery Method Room Air Weight: 79.2 kg Body Mass Index (BMI) 31.9 Intake and Output for Last 24 Hours 04/19/19 04/20/19 04/21/19 23:59 23:59 23:59 Intake Total 120 / 120 Balance 120 / 120 Medical Necessity - Tobacco Use Smoking Status: Never smoker Assessment/Plan #1 seizure disorder-currently on Dilantin, stable #2 anxiety/depression-patient remains on Celexa #3 osteoarthritis #4 postop day #4 status post revision of left knee arthroplasty-continue PT and OT Code Visit Inpatient E&M: 38935 Subs Hosp L2
[2019-04-21 18:58] VITALS: BP 115/68; PULSE 84; RESP 16; TEMP 37.1; O2SAT 95
[2019-04-21] MEDS: Citalopram 40 MG TABLET PO (20:07)
[2019-04-21] MEDS: Phenytoin Na 100 MG Capsule 300 MG PO (20:08)
[2019-04-22] MEDS: Acetaminophen 500 MG Tablet 1000 MG PO (05:51)
[2019-04-22] MEDS: Rivaroxaban 10 MG Tablet PO (05:52)
[2019-04-22] MEDS: oxyCODONE 5 MG Tablet PO ×4 (05:52→20:32)
[2019-04-22 07:05] VITALS: BP 109/64; PULSE 85; RESP 16; TEMP 36.6; O2SAT 90
[2019-04-22] MEDS: Meloxicam 7.5 MG Tablet PO (07:47)
[2019-04-22] MEDS: Pantoprazole Sodium 40 MG Tablet PO (07:47)
[2019-04-22 09:06] LABS: ALB/GLOB Ratio 0.7 RATIO (0.9-2.4); AST(SGOT) 42 U/L (15-37); Alanine Aminotransfer ALT/SGPT 77 U/L (13-56); Albumin, Serum 2.7 g/dL (3.2-5.0); Alkaline Phosphatase 91 U/L (45-117); Anion Gap 4 (5-15); BUN 10 mg/dL (7-18); BUN/Creat Ratio 12.7 RATIO (10-20); Calcium,Total 8.4 mg/dL (8.5-10.1); Chloride 105 mmol/L (98-107); Creatinine, Serum 0.79 mg/dL (0.55-1.02); EST Glomerular Filtration Rate 78 mL/min (>60); Est Glom Filt Rate - Afr Amer 94 mL/min (>60); Estimated Creatinine Clearance 56.15 ml/min; Globulin 3.7 g/dL (2.2-4.2); Glucose 112 mg/dL (74-106); Potassium 4.1 mmol/L (3.5-5.1); Protein, Total 6.4 g/dL (6.4-8.2); Sodium Level 139 mmol/L (136-145)
--- NOTE | 2019-04-22 11:23 | PN.NEURO_ITS ---
Subjective: Per nursing no issues overnight. Prn valium has been effective for her tremors. Patient voiced she is tolerating therapies and pain is controlled. Denied further questions or concerns. On 04/20/2019 AST 103 adn ALT 132 today improved AST 42 and ALT 77 will recheck LFTs on 04/24/2019. - Physical Exam General: Alert, Oriented x3, Cooperative HEENT: Atraumatic, PERRLA Oral: Moist Mucosa Neck: Supple, No JVD Lungs: Clear to auscultation, Normal air movement Abdomen: Bowel Sounds Present, Soft, Non Tender, Obese Extremities: No clubbing, No cyanosis, - - mild to left knee Skin: Incision - hilario intact to left knee, without redness or drng Neurological: Cranial nerves II-XII grossly intact, Deep Tendon Reflexes 2+/4 and Symmetrical, Motor Exam 5/5 strength throughout Psych/Mental Status: Normal Affect, Appropriate, Alert and oriented to time, place, person, mood and affect Vital Signs Temp Pulse Resp BP Pulse Ox 97.9 F 85 16 109/64 90 04/22/19 07:05 04/22/19 07:05 04/22/19 07:05 04/22/19 07:05 04/22/19 07:05 Oxygen Delivery Method Room Air Weight: 79.2 kg Body Mass Index (BMI) 31.9 Laboratory Tests Past 24 Hrs 04/22/19 08:35 Sodium 139 Potassium 4.1 Chloride 105 Carbon Dioxide 30.0 Anion Gap 4 L BUN 10 Creatinine 0.79 Estim Creat Clear Calc 56.15 Est GFR (MDRD) Af Amer 94 Est GFR (MDRD) Non-Af 78 BUN/Creatinine Ratio 12.7 Glucose 112 H Calcium 8.4 L Total Bilirubin 0.40 AST 42 H ALT 77 H Alkaline Phosphatase 91 Total Protein 6.4 Albumin 2.7 L Globulin 3.7 Albumin/Globulin Ratio 0.7 L Medical Necessity - Tobacco Use Smoking Status: Never smoker Assessment/Plan The patient is a 63 year old F with PMH of Seizure, depression, GERD and recurrent SVT's after surgeries, plane rides, and prolonged sitting, admitted to the [facility] for debility secondary to status post Revision Left total knee replacement entire tibia and femur components, for greater than 3 hours daily with a goal of returning home at or near her level of prior independence. Dr. Mak, performed a revision of the Left total knee replacement entire tibia and femur componentson 04/09/2019. Patient previously had left total knee arthroplasty by Dr. Carbone in 2004. Over the past two years her pain has increased, decreased ADLS, instability and recent falls. Her postoperative course has been on eventful. She does have a history of seizures remotely but has not had seizures in at least 30 years and continues to take the same dose of Dilantin which is well-tolerated. She used to see a neurologist in [place] but he has retired. She believes when she has a surgery she has seizures involving her left leg which she describes pain and tremors which improved with Valium and her left lower extremity. No other evidence of seizures. She lives at home with her in a one-story house with 8 steps that she needs to negotiate in order to return home. She is otherwise functionally independent. Plan - PT for mobility - OT for ADLs - Analgesics as needed - S/P Left total knee replacement has f/u appt on 05/01/2019, no staple d/c date will call if still on rehab. - Seizure on Dilantin and valium - GERD on protonix - GI/DVT prophylaxis on Protonix/Xarelto with last dose on 05/03/2019 in am- then ASA 81 mg BID x 2 weeks. Thigh high gladis hose to LLE, knee high to RLE d/t refusal of thigh high. - Elevated AST/ALT levels improved now AST 42 and ALT 77 will recheck LFTs on 04/24/2019 - Bowel protocol - Fall precautions - Medical management per hospitalist- consult - F/U with PCP and orthopedic surgeon.
--- NOTE | 2019-04-22 15:37 | CHAPLAIN ---
Type of Pastoral Visit ___ Initial Visit _x__ Follow-up Visit ___ On-call Visit ___ General Patient Visit ___ Spiritual Assessment ___ Family Conference ___ Bereavement ___ Rapid Response ___ Code Blue ___ Other (describe below) Pastoral Care Referral From _x__ Patient ___ Family ___ Nurse ___ Physician ___ Oxidation Engineer ___ Brazing Machine Operator ___ Other (describe below) Sacrament/Intervention _x__ Active listening ___ Anointing ___ Jewish ___ Bereavement ___ Communion _x__ Lali exploration ___ _x__ Life review _x__ Prayer ___ Reconciliation ___ Sacrament of Sick _x__ Supportive presence ___ Wedding ___ Other (describe below) Pastoral Comments
[2019-04-22] MEDS: diazePAM 5 MG Tablet PO (16:07)
--- NOTE | 2019-04-22 18:08 | PCM.PN.BLA ---
Progress Note The patient is a 63-year-old female who underwent elective total knee replacement on 04/17/[address] Marty Mak. She was transferred to the rehab unit on 04/19/2019. 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 Outpatient labs done the end of March showed normal LFTs. Routine labs done at admission to the rehab unit showed an increased AST of 103 and an increased ALT of 132 on 04/20/2019. Bilirubin and alkaline phosphatase were within normal limits. Repeat LFTs today show the AST is now 42 and the ALT is down to 77. Alk phos and bilirubin remain within normal limits. The pt denies any hx of liver disease. I suspect the increase in the AST and the ALT are due to muscle trauma and not liver disease. Will repeat LFTs in a few days.....no adjustment to meds at this time.
[2019-04-22 20:00] VITALS: PULSE 102; RESP 16; O2SAT 97
[2019-04-22 20:19] VITALS: BP 99/53; PULSE 102; RESP 16; TEMP 37.1; O2SAT 97
[2019-04-22] MEDS: Phenytoin Na 100 MG Capsule 300 MG PO (20:32)
[2019-04-22] MEDS: Senna/Docusate Sodium 1 Tablet 2 TABLET PO (20:33)
[2019-04-22] MEDS: Citalopram 40 MG TABLET PO (20:34)
--- NOTE | 2019-04-23 01:51 | NURSING ---
Reviewed and agree with INTERNET SALES ASSOCIATE documentation and FIMs charting.
[2019-04-23] MEDS: oxyCODONE 5 MG Tablet PO ×4 (06:01→18:30)
[2019-04-23] MEDS: Rivaroxaban 10 MG Tablet PO (06:01)
[2019-04-23 07:01] VITALS: O2SAT 91
[2019-04-23 07:27] VITALS: BP 114/78; PULSE 85; RESP 17; TEMP 37; O2SAT 94
[2019-04-23] MEDS: Pantoprazole Sodium 40 MG Tablet PO (07:47)
[2019-04-23] MEDS: Senna/Docusate Sodium 1 Tablet 2 TABLET PO ×2 (07:48→20:17)
--- NOTE | 2019-04-23 09:11 | PCM.PN.NEU ---
Subjective: Per nursing no issues overnight. Per patient pain is controlled this am, but usually increases with therapy. Routine tylenol and mobic was discontinued yesterday d/t elevated AST/ALT levels and will reassess need to restart. Patient talkative and pleasant and is tolerating therapies, denies further questions or concerns - Physical Exam General: Alert, Oriented x3, Cooperative HEENT: Atraumatic, PERRLA Oral: Moist Mucosa Neck: Supple, No JVD Lungs: Clear to auscultation, Normal air movement Cardiovascular: Regular rate, Regular Rhythm Abdomen: Bowel Sounds Present, Soft, Non Tender Extremities: No clubbing, No cyanosis, Edema - left knee mild Skin: Incision - hilario intact to left knee, without redness or drng Neurological: Cranial nerves II-XII grossly intact, Deep Tendon Reflexes 2+/4 and Symmetrical, Neuro grossly intact, Motor Exam 5/5 strength throughout Psych/Mental Status: Normal Affect, Appropriate, Alert and oriented to time, place, person, mood and affect Vital Signs Temp Pulse Resp BP Pulse Ox 98.6 F 85 17 114/78 94 04/23/19 07:27 04/23/19 07:27 04/23/19 07:27 04/23/19 07:27 04/23/19 07:27 Oxygen Delivery Method Room Air Weight: 79.2 kg Body Mass Index (BMI) 31.9 Intake and Output for Last 24 Hours 04/21/19 04/22/19 04/23/19 23:59 23:59 23:59 Intake Total 260 / 260 Balance 260 / 260 Medical Necessity - Tobacco Use Smoking Status: Never smoker Assessment/Plan The patient is a 63 year old F with PMH of Seizure, depression, GERD and recurrent SVT's after surgeries, plane rides, and prolonged sitting, admitted to the [facility] for debility secondary to status post Revision Left total knee replacement entire tibia and femur components, for greater than 3 hours daily with a goal of returning home at or near her level of prior independence. Dr. Mak, performed a revision of the Left total knee replacement entire tibia and femur componentson 04/09/2019. Patient previously had left total knee arthroplasty by Dr. Carbone in 2004. Over the past two years her pain has increased, decreased ADLS, instability and recent falls. Her postoperative course has been on eventful. She does have a history of seizures remotely but has not had seizures in at least 30 years and continues to take the same dose of Dilantin which is well-tolerated. She used to see a neurologist in [place] but he has retired. She believes when she has a surgery she has seizures involving her left leg which she describes pain and tremors which improved with Valium and her left lower extremity. No other evidence of seizures. She lives at home with her in a one-story house with 8 steps that she needs to negotiate in order to return home. She is otherwise functionally independent. Plan - PT for mobility - OT for ADLs - Analgesics as needed - S/P Left total knee replacement has f/u appt on 05/01/2019, no staple d/c date will call if still on rehab. - Seizure on Dilantin and valium - GERD on protonix - GI/DVT prophylaxis on Protonix/Xarelto with last dose on 05/03/2019 in am- then ASA 81 mg BID x 2 weeks. Thigh high gladis hose to LLE, knee high to RLE d/t refusal of thigh high. - Elevated AST/ALT levels improved now AST 42 and ALT 77 will recheck LFTs on 04/24/2019 - Bowel protocol - Fall precautions - Medical management per hospitalist- consult - F/U with PCP and orthopedic surgeon.
[2019-04-23] MEDS: diazePAM 5 MG Tablet PO (11:35)
[2019-04-23 19:08] VITALS: BP 99/66; PULSE 97; RESP 16; TEMP 36.8; O2SAT 94
[2019-04-23 19:45] VITALS: PULSE 97; RESP 16; O2SAT 94
[2019-04-23] MEDS: Phenytoin Na 100 MG Capsule 300 MG PO (20:17)
[2019-04-23] MEDS: Citalopram 40 MG TABLET PO (20:17)
--- NOTE | 2019-04-24 02:38 | NURSING ---
Reviewed and agree with MANUGRAPHER documentation and FIMs charting.
[2019-04-24 06:33] LABS: AST(SGOT) 27 U/L (15-37); Alanine Aminotransfer ALT/SGPT 54 U/L (13-56); Albumin, Serum 2.7 g/dL (3.2-5.0); Alkaline Phosphatase 84 U/L (45-117); Bilirubin, Direct 0.08 mg/dL (0.00-0.30); Globulin 3.7 g/dL (2.2-4.2); Protein, Total 6.4 g/dL (6.4-8.2)
[2019-04-24] MEDS: Rivaroxaban 10 MG Tablet PO (06:37)
[2019-04-24] MEDS: oxyCODONE 5 MG Tablet PO ×3 (06:37→20:55)
[2019-04-24 07:06] VITALS: BP 99/65; PULSE 92; RESP 18; TEMP 36.7; O2SAT 98
[2019-04-24] MEDS: Pantoprazole Sodium 40 MG Tablet PO (08:23)
[2019-04-24] MEDS: Senna/Docusate Sodium 1 Tablet 2 TABLET PO ×2 (08:23→20:29)
--- NOTE | 2019-04-24 09:00 | NURSING ---
Messages left at Dr corrales's office in regards to dressing orders.
--- NOTE | 2019-04-24 09:33 | PCM.PN.NEU ---
Subjective: Per nursing no issues overnight. Per patient tolerating therapies well. AST 27 and ALT 54 levels improved today. Denies further questions or concerns. - Physical Exam General: Alert, Oriented x3, Cooperative HEENT: Atraumatic, PERRLA Oral: Moist Mucosa Neck: Supple, No JVD Lungs: Clear to auscultation, Normal air movement Cardiovascular: Regular rate, Regular Rhythm Abdomen: Bowel Sounds Present, Soft, Non Tender Extremities: No clubbing, No cyanosis, - - mild to left knee Skin: Incision - hilario intact to left knee, without redness or drng Neurological: Cranial nerves II-XII grossly intact, Deep Tendon Reflexes 2+/4 and Symmetrical, Neuro grossly intact, Motor Exam 5/5 strength throughout Psych/Mental Status: Normal Affect, Appropriate, Alert and oriented to time, place, person, mood and affect Vital Signs Temp Pulse Resp BP Pulse Ox 98.1 F 92 18 99/65 98 04/24/19 07:06 04/24/19 07:06 04/24/19 07:06 04/24/19 07:06 04/24/19 07:06 Oxygen Delivery Method Room Air Weight: 78.8 kg Body Mass Index (BMI) 31.9 Intake and Output for Last 24 Hours 04/22/19 04/23/19 04/24/19 23:59 23:59 23:59 Intake Total 260 / 260 Balance 260 / 260 Laboratory Tests Past 24 Hrs 04/24/19 05:35 Total Bilirubin 0.30 Direct Bilirubin 0.08 AST 27 ALT 54 Alkaline Phosphatase 84 Total Protein 6.4 Albumin 2.7 L Globulin 3.7 Medical Necessity - Tobacco Use Smoking Status: Never smoker Assessment/Plan The patient is a 63 year old F with PMH of Seizure, depression, GERD and recurrent SVT's after surgeries, plane rides, and prolonged sitting, admitted to the [facility] for debility secondary to status post Revision Left total knee replacement entire tibia and femur components, for greater than 3 hours daily with a goal of returning home at or near her level of prior independence. Dr. Mak, performed a revision of the Left total knee replacement entire tibia and femur componentson 04/09/2019. Patient previously had left total knee arthroplasty by Dr. Carbone in 2004. Over the past two years her pain has increased, decreased ADLS, instability and recent falls. Her postoperative course has been on eventful. She does have a history of seizures remotely but has not had seizures in at least 30 years and continues to take the same dose of Dilantin which is well-tolerated. She used to see a neurologist in [place] but he has retired. She believes when she has a surgery she has seizures involving her left leg which she describes pain and tremors which improved with Valium and her left lower extremity. No other evidence of seizures. She lives at home with her in a one-story house with 8 steps that she needs to negotiate in order to return home. She is otherwise functionally independent. Plan - PT for mobility - OT for ADLs - Analgesics as needed - S/P Left total knee replacement has f/u appt on 05/01/2019, no staple d/c date will call if still on rehab. - Seizure on Dilantin and valium - GERD on protonix - GI/DVT prophylaxis on Protonix/Xarelto with last dose on 05/03/2019 in am- then ASA 81 mg BID x 2 weeks. Thigh high gladis hose to LLE, knee high to RLE d/t refusal of thigh high. - Elevated AST/ALT levels improved 04/24/19 AST 27, ALT 54. - Bowel protocol - Fall precautions - Medical management per hospitalist- consult - F/U with PCP and orthopedic surgeon.
--- NOTE | 2019-04-24 10:21 | NURSING ---
DR Howard paged in regards to pt's AST/ALT levels and to see if it is ok to restart Mobic and or Tylenol
[2019-04-24] MEDS: diazePAM 5 MG Tablet PO ×2 (11:15→23:06)
[2019-04-24] MEDS: Phenytoin Na 100 MG Capsule 300 MG PO (20:29)
[2019-04-24] MEDS: Citalopram 40 MG TABLET PO (20:29)
[2019-04-24 20:52] VITALS: BP 128/60; PULSE 99; RESP 16; TEMP 37; O2SAT 94
[2019-04-25] MEDS: oxyCODONE 5 MG Tablet PO ×6 (01:06→23:50)
[2019-04-25] MEDS: Rivaroxaban 10 MG Tablet PO (06:10)
[2019-04-25 07:22] VITALS: BP 106/69; PULSE 85; RESP 16; TEMP 36.9; O2SAT 93
[2019-04-25] MEDS: Pantoprazole Sodium 40 MG Tablet PO (07:47)
[2019-04-25] MEDS: Senna/Docusate Sodium 1 Tablet 2 TABLET PO ×2 (07:48→20:34)
[2019-04-25] MEDS: Acetaminophen 325 MG Tablet 650 MG PO (09:02)
--- NOTE | 2019-04-25 10:00 | CASEMGMT ---
Social Work IDT met with patient and for Team meeting. Discussed patient's progress in therapy - improving well. Still working on gait pattern improvement and assistance with transfers. Discussed pt discharging 05/01 - pt and IDT agreeable. [place] to be removed 05/01. Therapy recommending outpatient PT and FWW. Pt was active with [facility] in [place] - referral made - appt scheduled for 05/02 at 11 am. Referred to [facility] for FWW. Plan: DC home with 05/01 with [facility] and FWW. Annika Jesus, PROJECT RESERVOIR ENGINEER STIPPLER
--- NOTE | 2019-04-25 10:33 | PN.NEURO_ITS ---
Subjective: Staffed in team meeting today. All the questions are answered. Further therapy details per PT/OT notes. Patient will be discharged home on 05/01/2019 and has a F/U appt with orthopedics on 05/01/2019 and will have hilario d/c at office. Patient will have outpatient PT. - Physical Exam General: Alert, Oriented x3, Cooperative HEENT: Atraumatic, PERRLA Oral: Moist Mucosa Neck: Supple, No JVD Lungs: Clear to auscultation, Normal air movement Cardiovascular: Regular rate, Regular Rhythm Abdomen: Bowel Sounds Present, Soft, Non Tender Extremities: No clubbing, No cyanosis, - - mild edema to left knee Skin: Incision - hilario intact to left knee, without redness or drng Neurological: Cranial nerves II-XII grossly intact, Deep Tendon Reflexes 2+/4 and Symmetrical, Neuro grossly intact, Motor Exam 5/5 strength throughout Psych/Mental Status: Normal Affect, Appropriate, Alert and oriented to time, place, person, mood and affect Vital Signs Temp Pulse Resp BP Pulse Ox 98.5 F 85 16 106/69 93 04/25/19 07:22 04/25/19 07:22 04/25/19 07:22 04/25/19 07:22 04/25/19 07:22 Oxygen Delivery Method Room Air Weight: 78.8 kg Body Mass Index (BMI) 31.9 Intake and Output for Last 24 Hours 04/23/19 04/24/19 04/25/19 23:59 23:59 23:59 Intake Total 260 / 260 240 / 240 Balance 260 / 260 240 / 240 Medical Necessity - Tobacco Use Smoking Status: Never smoker Assessment/Plan The patient is a 63 year old F with PMH of Seizure, depression, GERD and recurrent SVT's after surgeries, plane rides, and prolonged sitting, admitted to the [facility] for debility secondary to status post Revision Left total knee replacement entire tibia and femur components, for greater than 3 hours daily with a goal of returning home at or near her level of prior independence. Dr. aMk, performed a revision of the Left total knee replacement entire tibia and femur componentson 04/09/2019. Patient previously had left total knee arthroplasty by Dr. Carbone in 2004. Over the past two years her pain has increased, decreased ADLS, instability and recent falls. Her postoperative course has been on eventful. She does have a history of seizures remotely but has not had seizures in at least 30 years and continues to take the same dose of Dilantin which is well-tolerated. She used to see a neurologist in [place] but he has retired. She believes when she has a surgery she has seizures involving her left leg which she describes pain and tremors which improved with Valium and her left lower extremity. No other evidence of seizures. She lives at home with her in a one-story house with 8 steps that she needs to negotiate in order to return home. She is otherwise functionally independent. Plan - PT for mobility - OT for ADLs - Analgesics as needed - S/P Left total knee replacement has f/u appt on 05/01/2019, no staple d/c date will call if still on rehab. - Seizure on Dilantin and valium - GERD on protonix - GI/DVT prophylaxis on Protonix/Xarelto with last dose on 05/03/2019 in am- then ASA 81 mg BID x 2 weeks. Thigh high gladis hose to LLE, knee high to RLE d/t refusal of thigh high. - Elevated AST/ALT levels improved 04/24/19 AST 27, ALT 54. - Bowel protocol - Fall precautions - Medical management per hospitalist- consult - F/U with PCP and orthopedic surgeon. D/C home on 05/01/2019 with outpatient PT
[2019-04-25] MEDS: diazePAM 5 MG Tablet PO ×2 (12:10→21:07)
[2019-04-25] MEDS: Acetaminophen 500 MG Tablet 1000 MG PO ×2 (14:59→21:04)
[2019-04-25] MEDS: Phenytoin Na 100 MG Capsule 300 MG PO (20:34)
[2019-04-25] MEDS: Citalopram 40 MG TABLET PO (20:34)
[2019-04-25 20:38] VITALS: BP 108/70; PULSE 92; RESP 18; TEMP 37.1; O2SAT 93
[2019-04-26] MEDS: Rivaroxaban 10 MG Tablet PO (05:17)
[2019-04-26] MEDS: Acetaminophen 500 MG Tablet 1000 MG PO ×3 (05:17→21:54)
[2019-04-26] MEDS: oxyCODONE 5 MG Tablet PO ×5 (05:18→21:45)
[2019-04-26] MEDS: Senna/Docusate Sodium 1 Tablet 2 TABLET PO ×2 (07:49→21:54)
[2019-04-26] MEDS: Pantoprazole Sodium 40 MG Tablet PO (07:49)
[2019-04-26 08:28] VITALS: BP 115/69; PULSE 82; RESP 18; TEMP 36.8; O2SAT 94
--- NOTE | 2019-04-26 10:25 | PCM.PN.NEU ---
Subjective: Per nursing no issues overnight. Per patient, tolerating therapies well and pain is controlled, increases during therapy but manageable. Denies further questions or concerns. - Physical Exam General: Alert, Oriented x3, Cooperative HEENT: Atraumatic, PERRLA Oral: Moist Mucosa Neck: Supple, No JVD Lungs: Clear to auscultation, Normal air movement Cardiovascular: Regular rate, Regular Rhythm Abdomen: Bowel Sounds Present, Soft, Non Tender Extremities: No clubbing, No cyanosis, Edema - mild to left knee Skin: Incision - hilario intact to left knee, without redness or drng Neurological: Cranial nerves II-XII grossly intact, Deep Tendon Reflexes 2+/4 and Symmetrical, Motor Exam 5/5 strength throughout Psych/Mental Status: Normal Affect, Appropriate, Alert and oriented to time, place, person, mood and affect Vital Signs Temp Pulse Resp BP Pulse Ox 98.3 F 82 18 115/69 94 04/26/19 08:28 04/26/19 08:28 04/26/19 08:28 04/26/19 08:28 04/26/19 08:28 Oxygen Delivery Method Room Air Weight: 78.8 kg Body Mass Index (BMI) 31.9 Intake and Output for Last 24 Hours 04/24/19 04/25/19 04/26/19 23:59 23:59 23:59 Intake Total 240 / 240 180 / 180 Output Total 300 / 300 Balance 240 / 240 -120 / -120 Medical Necessity - Tobacco Use Smoking Status: Never smoker Assessment/Plan The patient is a 63 year old F with PMH of Seizure, depression, GERD and recurrent SVT's after surgeries, plane rides, and prolonged sitting, admitted to the [facility] for debility secondary to status post Revision Left total knee replacement entire tibia and femur components, for greater than 3 hours daily with a goal of returning home at or near her level of prior independence. Dr. Mak, performed a revision of the Left total knee replacement entire tibia and femur componentson 04/09/2019. Patient previously had left total knee arthroplasty by Dr. Carbone in 2004. Over the past two years her pain has increased, decreased ADLS, instability and recent falls. Her postoperative course has been on eventful. She does have a history of seizures remotely but has not had seizures in at least 30 years and continues to take the same dose of Dilantin which is well-tolerated. She used to see a neurologist in [place] but he has retired. She believes when she has a surgery she has seizures involving her left leg which she describes pain and tremors which improved with Valium and her left lower extremity. No other evidence of seizures. She lives at home with her in a one-story house with 8 steps that she needs to negotiate in order to return home. She is otherwise functionally independent. Plan - PT for mobility - OT for ADLs - Analgesics as needed - S/P Left total knee replacement has f/u appt on 05/01/2019, no staple d/c date will call if still on rehab. - Seizure on Dilantin and valium - GERD on protonix - GI/DVT prophylaxis on Protonix/Xarelto with last dose on 05/03/2019 in am- then ASA 81 mg BID x 2 weeks-start on -05/17/2019. Thigh high lgadis hose to LLE, knee high to RLE d/t refusal of thigh high. - Elevated AST/ALT levels improved 04/24/19 AST 27, ALT 54. - Bowel protocol - Fall precautions - Medical management per hospitalist- consult - F/U with PCP and orthopedic surgeon. D/C home on 05/01/2019 with outpatient PT
[2019-04-26] MEDS: diazePAM 5 MG Tablet PO (11:44)
[2019-04-26 20:24] VITALS: BP 100/61; PULSE 91; RESP 18; TEMP 36.8; O2SAT 95
[2019-04-26] MEDS: Phenytoin Na 100 MG Capsule 300 MG PO (21:53)
[2019-04-26] MEDS: Citalopram 40 MG TABLET PO (21:53)
[2019-04-27] MEDS: oxyCODONE 5 MG Tablet PO ×5 (02:28→21:01)
[2019-04-27] MEDS: Rivaroxaban 10 MG Tablet PO (05:37)
[2019-04-27] MEDS: Acetaminophen 500 MG Tablet 1000 MG PO ×3 (05:37→22:48)
[2019-04-27] MEDS: Pantoprazole Sodium 40 MG Tablet PO (07:34)
[2019-04-27] MEDS: Senna/Docusate Sodium 1 Tablet 2 TABLET PO ×2 (07:34→21:08)
[2019-04-27 08:26] VITALS: BP 116/79; PULSE 86; RESP 16; TEMP 36.7; O2SAT 96
[2019-04-27] MEDS: diazePAM 5 MG Tablet PO ×2 (09:36→21:08)
--- NOTE | 2019-04-27 17:45 | NURSING ---
Reviewed and agree with WELDER/FABRICATOR's Fims and charting
[2019-04-27 19:10] VITALS: BP 103/63; PULSE 90; RESP 18; TEMP 36.7; O2SAT 96
[2019-04-27] MEDS: Citalopram 40 MG TABLET PO (21:07)
[2019-04-27] MEDS: Phenytoin Na 100 MG Capsule 300 MG PO (21:07)
[2019-04-27 22:00] VITALS: PULSE 90; RESP 18; O2SAT 96
[2019-04-28] MEDS: Acetaminophen 500 MG Tablet 1000 MG PO ×3 (06:10→21:39)
[2019-04-28] MEDS: Rivaroxaban 10 MG Tablet PO (06:10)
[2019-04-28 07:24] VITALS: BP 107/61; PULSE 82; RESP 16; TEMP 36.7; O2SAT 95
[2019-04-28] MEDS: Senna/Docusate Sodium 1 Tablet 2 TABLET PO ×2 (07:57→21:40)
[2019-04-28] MEDS: Pantoprazole Sodium 40 MG Tablet PO (07:57)
[2019-04-28] MEDS: oxyCODONE 5 MG Tablet PO ×2 (08:00→15:22)
--- NOTE | 2019-04-28 18:20 | NURSING ---
pt did not walk to ambulated in [place] with staff or do any activities today. states just wants to rest.
[2019-04-28 19:18] VITALS: BP 111/66; PULSE 93; RESP 16; TEMP 36.9; O2SAT 95
[2019-04-28] MEDS: Phenytoin Na 100 MG Capsule 300 MG PO (21:41)
[2019-04-28] MEDS: diazePAM 5 MG Tablet PO (21:41)
[2019-04-28] MEDS: Citalopram 40 MG TABLET PO (21:41)
[2019-04-28 22:00] VITALS: PULSE 92; RESP 16; O2SAT 95
[2019-04-29] MEDS: oxyCODONE 5 MG Tablet PO ×3 (00:19→13:45)
[2019-04-29] MEDS: Acetaminophen 500 MG Tablet 1000 MG PO ×3 (05:55→21:00)
[2019-04-29] MEDS: Rivaroxaban 10 MG Tablet PO (05:55)
[2019-04-29 07:09] VITALS: BP 109/56; PULSE 80; RESP 16; TEMP 36.8; O2SAT 98
--- NOTE | 2019-04-29 08:56 | PCM.PN.NEU ---
Subjective: Per nursing, no issues overnight. Per patient, continues to tolerate therapies well and pain is controlled. Denies further questions or concerns. - Physical Exam General: Alert, Cooperative HEENT: Atraumatic, PERRLA Oral: Moist Mucosa Neck: Supple, No JVD Lungs: Clear to auscultation, Normal air movement Cardiovascular: Regular rate, Regular Rhythm Abdomen: Bowel Sounds Present, Soft, Non Tender Extremities: No clubbing, No cyanosis, Edema - mild to left knee Skin: Incision - hilario intact to left knee, without redness or drng Neurological: Cranial nerves II-XII grossly intact, Deep Tendon Reflexes 2+/4 and Symmetrical, Motor Exam 5/5 strength throughout Psych/Mental Status: Normal Affect, Appropriate, Alert and oriented to time, place, person, mood and affect Vital Signs Temp Pulse Resp BP Pulse Ox 98.3 F 80 16 109/56 L 98 04/29/19 07:09 04/29/19 07:09 04/29/19 07:09 04/29/19 07:09 04/29/19 07:09 Oxygen Delivery Method Room Air Weight: 78.8 kg Body Mass Index (BMI) 31.9 Intake and Output for Last 24 Hours 04/27/19 04/28/19 04/29/19 23:59 23:59 23:59 Intake Total 180 / 180 Balance 180 / 180 Medical Necessity - Tobacco Use Smoking Status: Never smoker Assessment/Plan The patient is a 63 year old F with PMH of Seizure, depression, GERD and recurrent SVT's after surgeries, plane rides, and prolonged sitting, admitted to the [facility] for debility secondary to status post Revision Left total knee replacement entire tibia and femur components, for greater than 3 hours daily with a goal of returning home at or near her level of prior independence. Dr. Mak, performed a revision of the Left total knee replacement entire tibia and femur componentson 04/09/2019. Patient previously had left total knee arthroplasty by Dr. Carbone in 2004. Over the past two years her pain has increased, decreased ADLS, instability and recent falls. Her postoperative course has been on eventful. She does have a history of seizures remotely but has not had seizures in at least 30 years and continues to take the same dose of Dilantin which is well-tolerated. She used to see a neurologist in [place] but he has retired. She believes when she has a surgery she has seizures involving her left leg which she describes pain and tremors which improved with Valium and her left lower extremity. No other evidence of seizures. She lives at home with her in a one-story house with 8 steps that she needs to negotiate in order to return home. She is otherwise functionally independent. Plan - PT for mobility - OT for ADLs - Analgesics as needed - S/P Left total knee replacement has f/u appt on 05/01/2019, hilario will be d/c at appt. - Seizure on Dilantin and valium - GERD on protonix - GI/DVT prophylaxis on Protonix/Xarelto with last dose on 05/03/2019 in am- then ASA 81 mg BID x 2 weeks-start on -05/17/2019. Thigh high gladis hose to LLE, knee high to RLE d/t refusal of thigh high. - Elevated AST/ALT levels improved 04/24/19 AST 27, ALT 54. - Bowel protocol - Fall precautions - Medical management per hospitalist- consult - F/U with PCP and orthopedic surgeon. D/C home on 05/01/2019 with outpatient PT
[2019-04-29 09:00] LABS: Hematocrit 36.6 % (37-47); Hemoglobin 11.8 g/dL (12.0-15.0); Mean Corp Hgb Conc 32.2 g/dL (32-36); Mean Corpuscular Hgb 31.7 pg (27.0-32.0); Mean Corpuscular Volume 98.4 fL (81-99); Mean Platelet Vol. 8.2 fl (6.2-12.0); Platelet Count 388 K/mm3 (150-450); RBC Distribution Width CV 12.4 % (11.6-14.6); RBC Distribution Width SD 44.7 fl (35.1-43.9); Red Blood Count 3.72 M/mm3 (4.2-5.4); White Blood Count 4.4 K/mm3 (4.4-11.0)
[2019-04-29] MEDS: Senna/Docusate Sodium 1 Tablet 2 TABLET PO (09:18)
[2019-04-29] MEDS: Pantoprazole Sodium 40 MG Tablet PO (09:18)
[2019-04-29 09:20] LABS: Anion Gap 2 (5-15); BUN 16 mg/dL (7-18); BUN/Creat Ratio 19.5 RATIO (10-20); Calcium,Total 8.8 mg/dL (8.5-10.1); Chloride 105 mmol/L (98-107); Creatinine, Serum 0.82 mg/dL (0.55-1.02); EST Glomerular Filtration Rate 74 mL/min (>60); Est Glom Filt Rate - Afr Amer 90 mL/min (>60); Glucose 107 mg/dL (74-106); Sodium Level 136 mmol/L (136-145)
[2019-04-29] MEDS: diazePAM 5 MG Tablet PO (15:02)
[2019-04-29 18:45] VITALS: BP 115/77; PULSE 90; RESP 16; TEMP 36.9; O2SAT 96
[2019-04-29] MEDS: Citalopram 40 MG TABLET PO (21:01)
[2019-04-29] MEDS: Phenytoin Na 100 MG Capsule 300 MG PO (21:01)
[2019-04-29 22:00] VITALS: PULSE 92; RESP 18; O2SAT 94
[2019-04-30] MEDS: Rivaroxaban 10 MG Tablet PO (06:02)
[2019-04-30] MEDS: Acetaminophen 500 MG Tablet 1000 MG PO ×3 (06:02→20:45)
[2019-04-30 07:19] VITALS: BP 116/79; PULSE 97; RESP 17; TEMP 36.7; O2SAT 93
[2019-04-30] MEDS: oxyCODONE 5 MG Tablet PO ×2 (09:06→18:19)
[2019-04-30] MEDS: Pantoprazole Sodium 40 MG Tablet PO (09:21)
--- NOTE | 2019-04-30 09:25 | PN.NEURO_ITS ---
Subjective: Per nursing, no issues overnight. Per patient continues to tolerate therapies well and pain is controlled. Denies further questions or concerns. Patient is ready to be discharged home on 05/01/2019 - Physical Exam General: Alert, Oriented x3, Cooperative HEENT: Atraumatic, PERRLA Oral: Moist Mucosa Neck: Supple, No JVD Lungs: Clear to auscultation, Normal air movement Cardiovascular: Regular rate, Regular Rhythm Abdomen: Bowel Sounds Present, Soft, Non Tender Extremities: No clubbing, No cyanosis, Edema - minimal to left knee Skin: Incision - hilario intact, without redness or drng Neurological: Cranial nerves II-XII grossly intact, Deep Tendon Reflexes 2+/4 and Symmetrical, Motor Exam 5/5 strength throughout Psych/Mental Status: Normal Affect, Appropriate, Alert and oriented to time, place, person, mood and affect Vital Signs Temp Pulse Resp BP Pulse Ox 98.0 F 97 17 116/79 93 04/30/19 07:19 04/30/19 07:19 04/30/19 07:19 04/30/19 07:19 04/30/19 07:19 Oxygen Delivery Method Room Air Weight: 78.8 kg Body Mass Index (BMI) 31.9 Intake and Output for Last 24 Hours 04/28/19 04/29/19 04/30/19 23:59 23:59 23:59 Intake Total 300 / 300 Output Total 350 / 350 Balance -50 / -50 Medical Necessity - Tobacco Use Smoking Status: Never smoker Assessment/Plan The patient is a 63 year old F with PMH of Seizure, depression, GERD and recurrent SVT's after surgeries, plane rides, and prolonged sitting, admitted to the [facility] for debility secondary to status post Revision Left total knee r eplacement entire tibia and femur components, for greater than 3 hours daily with a goal of returning home at or near her level of prior independence. Dr. Mak, performed a revision of the Left total knee replacement entire tibia and femur componentson 04/09/2019. Patient previously had left total knee arthroplasty by Dr. Carbone in 2003. Over the past two years her pain has increased, decreased ADLS, instability and recent falls. Her postoperative course has been on eventful. She does have a history of seizures remotely but has not had seizures in at least 30 years and continues to take the same dose of Dilantin which is well-tolerated. She used to see a neurologist in [place] but he has retired. She believes when she has a surgery she has seizures involving her left leg which she describes pain and tremors which improved with Valium and her left lower extremity. No other evidence of seizures. She lives at home with her in a one-story house with 8 steps that she needs to negotiate in order to return home. She is otherwise functionally independent. Plan - PT for mobility - OT for ADLs - Analgesics as needed - S/P Left total knee replacement has f/u appt on 05/01/2019, hilario will be d/c at appt. - Seizure on Dilantin and valium - GERD on protonix - GI/DVT prophylaxis on Protonix/Xarelto with last dose on 05/03/2019 in am- then ASA 81 mg BID x 2 weeks-start on -05/17/2019. Thigh high gladis hose to LLE, knee high to RLE d/t refusal of thigh high. - Elevated AST/ALT levels improved 04/24/19 AST 27, ALT 54. - Bowel protocol - Fall precautions - Medical management per hospitalist- consult - F/U with PCP and orthopedic surgeon. D/C home on 05/01/2019 with outpatient PT
--- NOTE | 2019-04-30 14:33 | DCINST_ITS ---
- Discharge Diagnoses Reason(s) for Visit for Discharge Instructions: S/P Left total knee replacement You will use the following diet at home:: No restrictions Your food should be the consistency of: Regular Your liquids should be the consistency of: Regular/Thin Discharge Activity: Return to Normal Activity, May Not Drive, May Shower, Use Walker Weight Bearing Status: Weight bearing as tolerated Call your doctor if your incision/area has: Continuous Slow Oozing, Sudden Increased Bleeding, Increased Pain/ Swelling, Increased Redness, Foul Smelling Discharge, Swelling at the incision site Call your doctor if you observe: Fever of 101 or Higher, Coldness, Increased Pain, Numbness or Tingling, Change in Color, Inability to urinate, Inability to have a bowel movement, Shortness of breath, Dizziness, Fainting spells, Swelling in the ankles, Chest pain, Prolonged hiccoughing, Increased palpitations (irregular heartbeat), Calf discomfort, Uncontrolled pain Cleanse incision/area with: Soap & Water Allergies/Adverse Reactions: Allergies Sulfa (Sulfonamide Antibiotics) Allergy (Verified 04/17/19 10:24) Rash PAPER TAPE Allergy (Uncoded 04/17/19 10:24) Rash Medications to take at Discharge Acetaminophen [Tylenol] 1,000 mg PO Q8 tablet 04/30/19 Aspirin E.C. [Ecotrin] 81 mg PO BID@0800,1700 #28 tablet 04/30/19 Citalopram [Celexa] 40 mg PO QHS tablet 04/30/19 Oxycodone [Oxyir] 5 - 10 mg PO Q6H PRN PRN 5 Days #40 tablet 04/30/19 Pantoprazole Sodium [Protonix] 40 mg PO DAILY tablet 04/30/19 Phenytoin Na [Dilantin] 300 mg PO QHS capsule 04/30/19 Rivaroxaban [Xarelto] 10 mg PO DAILY@0600 #2 tab 04/30/19 The following prescriptions were given: Oxycodone [Oxyir] 5 - 10 mg PO Q6H PRN PRN 5 Days #40 tablet PRN Reason: Mod-Severe Pain (-07/18) Transmission Status: Received by [id number] Rivaroxaban [Xarelto] 10 mg PO DAILY@0600 #2 tab Transmission Status: Pending to [facility] Primary Care Physician: Irene Samuel MD [Primary Care Provider] - Test Results: Test results from this visit will be discussed in further detail at your follow- up appointment, if applicable. Please Follow Up With: [facility] - [phone] When: 05/02/2019 @ 11:00 am Please Follow Up With: Irene Samuel MD When: 05/06/19 @ 10:15 am Please Follow Up With: [facility] When: 05/01/2019 @ 10:00 am Proposed Discharge Date: 05/01/19
[2019-04-30 19:46] VITALS: BP 110/67; PULSE 100; RESP 16; TEMP 36.6; O2SAT 95
[2019-04-30] MEDS: Phenytoin Na 100 MG Capsule 300 MG PO (20:44)
[2019-04-30] MEDS: Citalopram 40 MG TABLET PO (20:45)
[2019-04-30 22:00] VITALS: PULSE 98; RESP 16; O2SAT 95
[2019-05-01] MEDS: Acetaminophen 500 MG Tablet 1000 MG PO (06:21)
[2019-05-01] MEDS: Rivaroxaban 10 MG Tablet PO (06:22)
[2019-05-01 08:05] VITALS: BP 143/76; PULSE 106; RESP 16; TEMP 36.8; O2SAT 93
[2019-05-01] MEDS: Pantoprazole Sodium 40 MG Tablet PO (08:23)
--- NOTE | 2019-05-01 10:28 | PCM.RU.DC ---
Rehab Discharge Summary DATE OF ADMISSION: 04/19/19 DATE OF DISCHARGE: 05/01/19 - Rehab Diagnosis Debility secondary to left total knee replacement Subjective: Per nursing, no issues overnight. Patient voiced her pain is well controlled and is ready to be discharged home today. Patient has f/u appt with orthopedics today and will have hilario D/C at appt. - Physical Exam General: Alert, Oriented x3, Cooperative HEENT: Atraumatic, PERRLA Oral: Moist Mucosa Neck: Supple, No JVD Lungs: Clear to auscultation, Normal air movement Cardiovascular: Regular rate, Regular Rhythm Abdomen: Bowel Sounds Present, Soft, Non Tender Extremities: No clubbing, No cyanosis, No edema Skin: Incision - hilario intact to left knee, without redness or drng Neurological: Cranial nerves II-XII grossly intact, Deep Tendon Reflexes 2+/4 and Symmetrical, Motor Exam 5/5 strength throughout Psych/Mental Status: Normal Affect, Appropriate, Alert and oriented to time, place, person, mood and affect Vital Signs Temp Pulse Resp BP Pulse Ox 98.3 F 106 H 16 143/76 H 93 05/01/19 08:05 05/01/19 08:05 05/01/19 08:05 05/01/19 08:05 05/01/19 08:05 Oxygen Delivery Method Room Air Weight: 77.4 kg Body Mass Index (BMI) 31.9 Intake and Output for Last 24 Hours 04/29/19 04/30/19 05/01/19 23:59 23:59 23:59 Intake Total 300 / 300 Output Total 350 / 350 Balance -50 / -50 Discharge Activity: Return to Normal Activity, May Not Drive, May Shower, Use Walker Weight Bearing Status: Weight bearing as tolerated Call your doctor if your incision/area has: Continuous Slow Oozing, Sudden Increased Bleeding, Increased Pain/ Swelling, Increased Redness, Foul Smelling Discharge, Swelling at the incision site Call your doctor if you observe: Fever of 101 or Higher, Coldness, Increased Pain, Numbness or Tingling, Change in Color, Inability to urinate, Inability to have a bowel movement, Shortness of breath, Dizziness, Fainting spells, Swelling in the ankles, Chest pain, Prolonged hiccoughing, Increased palpitations (irregular heartbeat), Calf discomfort, Uncontrolled pain Cleanse incision/area with: Soap & Water Home Medications: Medications to take at Discharge Acetaminophen [Tylenol] 1,000 mg PO Q8 tab 04/30/19 Aspirin E.C. [Ecotrin] 81 mg PO BID@0800,1700 #28 tab 04/30/19 Citalopram [Celexa] 40 mg PO QHS tab 04/30/19 Oxycodone [Oxyir] 5 - 10 mg PO Q6H PRN PRN 5 Days #40 tab 04/30/19 Pantoprazole Sodium [Protonix] 40 mg PO DAILY tab 04/30/19 Phenytoin Na [Dilantin] 300 mg PO QHS cap 04/30/19 Rivaroxaban [Xarelto] 10 mg PO DAILY@0600 #2 tab 04/30/19 Following Prescrptions Were Given to Patient: Oxycodone [Oxyir] 5 - 10 mg PO Q6H PRN PRN 5 Days #40 tab PRN Reason: Mod-Severe Pain (4-07/18) Transmission Status: Received by [facility] Rivaroxaban [Xarelto] 10 mg PO DAILY@0600 #2 tab Transmission Status: Received by [facility] Primary Care Physician: Irene Samuel MD [Primary Care Provider] - Please Follow Up With: [facility] - [phone] When: 05/02/2019 @ 11:00 am Please Follow Up With: Irene Samuel MD When: 05/06/19 @ 10:15 am Please Follow Up With: [facility] When: 05/01/2019 @ 10:00 am Rehab Course The patient is a 63 year old F with PMH of Seizure, depression, GERD and recurrent SVT's after surgeries, plane rides, and prolonged sitting, admitted to the [facility] for debility secondary to status post Revision Left total knee replacement entire tibia and femur components, for greater than 3 hours daily with a goal of returning home at or near her level of prior independence. Dr. Mak, performed a revision of the Left total knee replacement entire tibia and femur componentson 04/09/2019. Patient previously had left total knee arthroplasty by Dr. Carbone in 2004. Over the past two years her pain has increased, decreased ADLS, instability and recent falls. Her postoperative course has been on eventful. She does have a history of seizures remotely but has not had seizures in at least 30 years and continues to take the same dose of Dilantin which is well-tolerated. She used to see a neurologist in [place] but he has retired. She believes when she has a surgery she has seizures involving her left leg which she describes pain and tremors which improved with Valium and her left lower extremity. No other evidence of seizures. She lives at home with her in a one-story house with 8 steps that she needs to negotiate in order to return home. She is otherwise functionally independent. During rehab course uncomplicated. On 04/20/2019 AST 103 and ALT 132, Mobic and Tylenol was discontinued and on 04/24/2019 AST 27 and ALT 54. Tylenol was restarted routine for pain control. Left knee incision without s/sx of infection, hilario intact, without redness or drng. Patient has F/U on 05/01/2019 with orthopedics and will have hilario D/C at that appt. Patient increased strength and mobility to return home. Patient will be discharged home on 05/01/2019 with Xarelto with last dose on 05/03/2019, then will start ASA 81 mg bid x 2 weeks with last dose on 05/17/2019 for DVT prophylaxis as directed by orthopedics. Also, patient to F/U with PCP and outpatient PT. Meaningful Use Info Meaningful Use Diagnoses (Choose all that apply): None applicable
== END 2019-05-01 09:15 | disposition home or self-care (01) | DRG 561 ==
PROVIDERS: Nurse Practitioner Family; Admitting Provider Psychiatry & Neurology Neurology; Referring Provider Psychiatry & Neurology Neurology; Visit Provider Internal Medicine
DX: Z47.1 Aftercare following joint replacement surgery (principal); Z96.652 Presence of left artificial knee joint; G40.909 Epilepsy, unspecified, not intractable, without status epilepticus; K21.9 Gastro-esophageal reflux disease without esophagitis; F32.9 Major depressive disorder, single episode, unspecified; F41.9 Anxiety disorder, unspecified; E66.9 Obesity, unspecified; Z68.31 Body mass index [BMI] 31.0-31.9, adult; Z71.3 Dietary counseling and surveillance
CPT/HCPCS: 36415; 80048; 80053; 80076; 85025; 85027; 97110; 97116; 97162; 97166; 97530; 97535; 97802